=== PATIENT | male | born 1955 | race Caucasian/White ===

== ENCOUNTER 2023-04-12 07:17 | Emergency (ER) | payer MEDICARE, SELFPAY ==
[2023-04-12] VITALS (40 sets, daily range): BP systolic 112–136; BP diastolic 66–114; PULSE 75–134; RESP 15–32; TEMP 36.4; O2SAT 91–99; BMI 45.4
[2023-04-12 08:06] LABS: Basophils Absolute Auto 0.03 K/uL (0.00-0.30); Basophils Percent Auto 0.5 % (0.0-3.0); Eosinophils Absolute Auto 0.18 K/uL (0.00-0.50); Eosinophils Percent Auto 3.1 % (0.0-7.0); Hematocrit 46.4 % (37.0-53.0); Hemoglobin* 14.7 gm/dL (13.5-17.5); Immature Granulocytes Abs Auto 0.03 K/uL (0.00-0.30); Immature Granulocytes Pct Auto 0.5 %; Lymphocytes Absolute Auto 2.12 K/uL (0.90-2.90); Lymphocytes Percent Auto 36.8 % (20-44); Mean Corpuscular HGB Conc 32 gm/dL (32-36); Mean Corpuscular Hemoglobin 30 pg (26-34); Mean Corpuscular Volume 96 fL (80-100); Monocytes Percent Auto 10.4 % (0.0-11.0); Neutrophils Percent Auto 48.7 % (42.0-72.0); Platelet Count* 219 K/uL (140-440); RDW Coefficient of Variation % 14.1 % (11.5-15.5); Red Blood Count 4.85 m/uL (4.30-5.90); White Blood Count* 5.76 K/uL (4.50-11.00)
[2023-04-12 08:10] LABS: Slide Review Reflex No
--- NOTE | 2023-04-12 08:10 | ED.GENADULT ---
HPI - General Adult General Chief complaint: Shortness of Breath/Dyspnea <Chance Noyola MD - Last Filed: 04/26/23 06:56> Stated complaint: difficulty breathing <Chance Noyola MD - Last Filed: 04/26/23 06:56> Time Seen by Provider: 04/12/23 08:05 <Chance Noyola MD - Last Filed: 04/26/23 06:56> History of Present Illness HPI narrative: reports that he has been feeling short of breath for the past 2 weeks. this has worsened the last 2 days. is especially feels this way upon exertion. has hx of a fib in the past and presents with this today . hr 90s-140s. has had an ablation at [facility] 2-3 years ago . is on Eliquis due to this hx . denies any pain. r ankle shows more swelling. last po was at 1730. took water this am with meds at 0530 67-year-old man presenting to the emergency department with concern of exertional dyspnea over the last couple of weeks. Even just getting up to go to the bathroom seems to make him more tired particularly over the last couple of days. Seems indicate that he typically is not in atrial fibrillation even slow AFib. No cough or cold symptoms no fever. No melena. No shortness of breath at rest. Actually says he feels better now. Does have a history of atrial fibrillation with ablation to 3 years ago. Says before his heart rate was much higher. Takes Eliquis and has not missed any doses. Has noted some increased right ankle swelling or generally with little lower extremity edema. He denies a history of heart failure. No chest pain. No changes in weight. Walks regularly. Does not drink alcohol. Thinks he does a good job keeping up with fluids. In addition to Eliquis takes metoprolol succinate 50 mg twice a day. Been no change in this dosing he says. <Chance Noyola MD - Last Filed: 04/26/23 06:56> Related Data Home medications: Home Medications Medication Instructions Recorded Confirmed allopurinol 300 mg tablet 300 mg PO DAILY 04/12/23 04/12/23 apixaban 5 mg tablet (Eliquis) 5 mg PO BID 04/12/23 04/12/23 furosemide 20 mg tablet 20 mg PO QAM 04/12/23 04/12/23 lisinopril 40 mg tablet 40 mg PO DAILY 04/12/23 04/12/23 metoprolol succinate 50 mg 50 mg PO BID 04/12/23 04/12/23 tablet,extended release 24 hr Previous Rx's Medication Instructions Recorded amiodarone 400 mg tablet 400 mg PO BID #30 tabs 04/12/23 metoprolol succinate 100 mg 100 mg PO BID #30 tabs 04/12/23 tablet,extended release 24 hr <Chance Noyola MD - Last Filed: 04/26/23 06:56> Allergies/adverse reactions: Allergies Allergy/AdvReac Type Severity Reaction Status Date / Time No Known Drug Allergies Allergy Verified 04/12/23 07:27 <Chance Noyola MD - Last Filed: 04/26/23 06:56> Review of Systems Status of ROS: Reports: 6 or more systems reviewed and unremarkable except as noted in History and below <Chance Noyola MD - Last Filed: 04/26/23 06:56> [facility] Social History: Social History Smoking Status: Never smoker Do you use any of these nicotine containing products: None Second hand tobacco smoke exposure: No How often do you have a drink containing alcohol: monthly or less How many standard drinks containing alcohol do you have on a typical day: 1 or 2 How often do you have six or more drinks on one occasion: Never AUDIT-C Alcohol total score: 1 Non-prescribed substance use: denies use service: No <Chance Noyola MD - Last Filed: 04/26/23 06:56> Exam Narrative: Exam Narrative: Very pleasant. Mustachioed. Skin is warm and dry. Lower extremities with hemosiderin deposition consistent of chronic stasis. Right is a little more edematous on the lower extremities around the ankle than the left. Both mildly pitting. No pain to palpation. Negative Homans. Lungs are clear. Breathing easily. Heart is in a rapid rate and irregular rhythm. Distant. Abdomen is obese soft nontender. Fully alert. Cranial nerves 2-12 intact. <Chance Noyola MD - Last Filed: 04/26/23 06:56> Const: Vital Signs, click to edit/add: Vital Signs - 24 hr 04/12/23 07:29 04/12/23 07:39 04/12/23 07:45 Temperature 97.5 F L Pulse Rate 94 134 H Pulse Rate [Apical ] 128 H Respiratory Rate 32 H Blood Pressure Blood Pressure [Le ft Forearm] 127/71 Pulse Oximetry 94 92 93 Oxygen Delivery Me thod Room Air Oxygen Flow Rate 04/12/23 08:00 04/12/23 08:02 04/12/23 08:03 Temperature Pulse Rate 111 H 92 125 H Pulse Rate [Apical ] Respiratory Rate 30 H Blood Pressure 130/84 Blood Pressure [Le ft Forearm] Pulse Oximetry 92 93 92 Oxygen Delivery Me thod Oxygen Flow Rate 04/12/23 08:15 04/12/23 08:30 04/12/23 08:32 Temperature Pulse Rate 115 H 111 H 100 Pulse Rate [Apical ] Respiratory Rate Blood Pressure 113/86 Blood Pressure [Le ft Forearm] Pulse Oximetry 94 94 94 Oxygen Delivery Me thod Oxygen Flow Rate 04/12/23 08:45 04/12/23 09:00 04/12/23 09:02 Temperature Pulse Rate 79 77 104 H Pulse Rate [Apical ] Respiratory Rate Blood Pressure 112/82 Blood Pressure [Le ft Forearm] Pulse Oximetry 93 96 94 Oxygen Delivery Me thod Oxygen Flow Rate 04/12/23 09:15 04/12/23 09:30 04/12/23 09:32 Temperature Pulse Rate 88 75 79 Pulse Rate [Apical ] Respiratory Rate Blood Pressure 118/81 Blood Pressure [Le ft Forearm] Pulse Oximetry 95 96 95 Oxygen Delivery Me thod Oxygen Flow Rate 04/12/23 09:45 04/12/23 10:00 04/12/23 10:02 Temperature Pulse Rate 101 H 108 H 89 Pulse Rate [Apical ] Respiratory Rate Blood Pressure 128/101 H Blood Pressure [Le ft Forearm] Pulse Oximetry 96 95 93 Oxygen Delivery Me thod Oxygen Flow Rate 04/12/23 10:15 04/12/23 10:30 04/12/23 10:32 Temperature Pulse Rate 85 106 H 90 Pulse Rate [Apical ] Respiratory Rate Blood Pressure 125/66 Blood Pressure [Le ft Forearm] Pulse Oximetry 96 94 94 Oxygen Delivery Me thod Oxygen Flow Rate 04/12/23 10:45 04/12/23 10:52 04/12/23 11:00 Temperature Pulse Rate 111 H 80 Pulse Rate [Apical ] Respiratory Rate 27 H Blood Pressure Blood Pressure [Le ft Forearm] Pulse Oximetry 91 98 Oxygen Delivery Me thod Nasal Cannula Oxygen Flow Rate 2 04/12/23 11:02 04/12/23 11:15 04/12/23 11:21 Temperature Pulse Rate 97 107 H 98 Pulse Rate [Apical ] Respiratory Rate 28 H 20 30 H Blood Pressure 124/81 135/87 Blood Pressure [Le ft Forearm] Pulse Oximetry 99 98 97 Oxygen Delivery Me thod Nasal Cannula Oxygen Flow Rate 2 04/12/23 11:27 04/12/23 11:30 04/12/23 11:32 Temperature Pulse Rate 111 H 98 101 H Pulse Rate [Apical ] Respiratory Rate 31 H 30 H 28 H Blood Pressure 123/95 H 114/95 H Blood Pressure [Le ft Forearm] Pulse Oximetry 95 97 95 Oxygen Delivery Me thod Nasal Cannula Nasal Cannula Nasal Cannula Oxygen Flow Rate 6 2 2 04/12/23 11:36 04/12/23 11:42 04/12/23 11:45 Temperature Pulse Rate 98 88 105 H Pulse Rate [Apical ] Respiratory Rate 28 H 28 H 25 H Blood Pressure 130/93 H 127/97 H Blood Pressure [Le ft Forearm] Pulse Oximetry 93 97 96 Oxygen Delivery Me thod Nasal Cannula Oxygen Flow Rate 2 04/12/23 11:47 04/12/23 11:48 04/12/23 11:52 Temperature Pulse Rate 76 84 121 H Pulse Rate [Apical ] Respiratory Rate 27 H 25 H 24 Blood Pressure 125/110 H 136/107 H Blood Pressure [Le ft Forearm] Pulse Oximetry 97 95 97 Oxygen Delivery Me thod Oxygen Flow Rate 04/12/23 12:00 04/12/23 12:02 04/12/23 12:15 Temperature Pulse Rate 111 H 99 105 H Pulse Rate [Apical ] Respiratory Rate 15 30 H 27 H Blood Pressure 126/114 H Blood Pressure [Le ft Forearm] Pulse Oximetry 97 96 96 Oxygen Delivery Me thod Oxygen Flow Rate 04/12/23 12:30 04/12/23 12:32 Temperature Pulse Rate Pulse Rate [Apical ] Respiratory Rate 26 H 31 H Blood Pressure 128/98 H Blood Pressure [Le ft Forearm] Pulse Oximetry Oxygen Delivery Me thod Oxygen Flow Rate <Chance Noyola MD - Last Filed: 04/26/23 06:56> Vital Signs, click to edit/add: Vital Signs - 24 hr 04/12/23 07:29 04/12/23 07:39 04/12/23 07:45 Temperature 97.5 F L Pulse Rate 94 134 H Pulse Rate [Apical ] 128 H Respiratory Rate 32 H Blood Pressure Blood Pressure [Le ft Forearm] 127/71 Pulse Oximetry 94 92 93 Oxygen Delivery Me thod Room Air Oxygen Flow Rate 04/12/23 08:00 04/12/23 08:02 04/12/23 08:03 Temperature Pulse Rate 111 H 92 125 H Pulse Rate [Apical ] Respiratory Rate 30 H Blood Pressure 130/84 Blood Pressure [Le ft Forearm] Pulse Oximetry 92 93 92 Oxygen Delivery Me thod Oxygen Flow Rate 04/12/23 08:15 04/12/23 08:30 04/12/23 08:32 Temperature Pulse Rate 115 H 111 H 100 Pulse Rate [Apical ] Respiratory Rate Blood Pressure 113/86 Blood Pressure [Le ft Forearm] Pulse Oximetry 94 94 94 Oxygen Delivery Me thod Oxygen Flow Rate 04/12/23 08:45 04/12/23 09:00 04/12/23 09:02 Temperature Pulse Rate 79 77 104 H Pulse Rate [Apical ] Respiratory Rate Blood Pressure 112/82 Blood Pressure [Le ft Forearm] Pulse Oximetry 93 96 94 Oxygen Delivery Me thod Oxygen Flow Rate 04/12/23 09:15 04/12/23 09:30 04/12/23 09:32 Temperature Pulse Rate 88 75 79 Pulse Rate [Apical ] Respiratory Rate Blood Pressure 118/81 Blood Pressure [Le ft Forearm] Pulse Oximetry 95 96 95 Oxygen Delivery Me thod Oxygen Flow Rate 04/12/23 09:45 04/12/23 10:00 04/12/23 10:02 Temperature Pulse Rate 101 H 108 H 89 Pulse Rate [Apical ] Respiratory Rate Blood Pressure 128/101 H Blood Pressure [Le ft Forearm] Pulse Oximetry 96 95 93 Oxygen Delivery Me thod Oxygen Flow Rate 04/12/23 10:15 04/12/23 10:30 04/12/23 10:32 Temperature Pulse Rate 85 106 H 90 Pulse Rate [Apical ] Respiratory Rate Blood Pressure 125/66 Blood Pressure [Le ft Forearm] Pulse Oximetry 96 94 94 Oxygen Delivery Me thod Oxygen Flow Rate 04/12/23 10:45 04/12/23 10:52 04/12/23 11:00 Temperature Pulse Rate 111 H 80 Pulse Rate [Apical ] Respiratory Rate 27 H Blood Pressure Blood Pressure [Le ft Forearm] Pulse Oximetry 91 98 Oxygen Delivery Me thod Nasal Cannula Oxygen Flow Rate 2 04/12/23 11:02 04/12/23 11:15 04/12/23 11:21 Temperature Pulse Rate 97 107 H 98 Pulse Rate [Apical ] Respiratory Rate 28 H 20 30 H Blood Pressure 124/81 135/87 Blood Pressure [Le ft Forearm] Pulse Oximetry 99 98 97 Oxygen Delivery Me thod Nasal Cannula Oxygen Flow Rate 2 04/12/23 11:27 04/12/23 11:30 04/12/23 11:32 Temperature Pulse Rate 111 H 98 101 H Pulse Rate [Apical ] Respiratory Rate 31 H 30 H 28 H Blood Pressure 123/95 H 114/95 H Blood Pressure [Le ft Forearm] Pulse Oximetry 95 97 95 Oxygen Delivery Me thod Nasal Cannula Nasal Cannula Nasal Cannula Oxygen Flow Rate 6 2 2 04/12/23 11:36 04/12/23 11:42 04/12/23 11:45 Temperature Pulse Rate 98 88 105 H Pulse Rate [Apical ] Respiratory Rate 28 H 28 H 25 H Blood Pressure 130/93 H 127/97 H Blood Pressure [Le ft Forearm] Pulse Oximetry 93 97 96 Oxygen Delivery Me thod Nasal Cannula Oxygen Flow Rate 2 04/12/23 11:47 04/12/23 11:48 04/12/23 11:52 Temperature Pulse Rate 76 84 121 H Pulse Rate [Apical ] Respiratory Rate 27 H 25 H 24 Blood Pressure 125/110 H 136/107 H Blood Pressure [Le ft Forearm] Pulse Oximetry 97 95 97 Oxygen Delivery Me thod Oxygen Flow Rate 04/12/23 12:00 04/12/23 12:02 04/12/23 12:15 Temperature Pulse Rate 111 H 99 105 H Pulse Rate [Apical ] Respiratory Rate 15 30 H 27 H Blood Pressure 126/114 H Blood Pressure [Le ft Forearm] Pulse Oximetry 97 96 96 Oxygen Delivery Me thod Oxygen Flow Rate 04/12/23 12:30 04/12/23 12:32 Temperature Pulse Rate Pulse Rate [Apical ] Respiratory Rate 26 H 31 H Blood Pressure 128/98 H Blood Pressure [Le ft Forearm] Pulse Oximetry Oxygen Delivery Me thod Oxygen Flow Rate <Miguel A Aldana MD - Last Filed: 04/12/23 11:32> Documenting provider has reviewed patient's vital signs: yes <Chance Noyola MD - Last Filed: 04/26/23 06:56> Course Vital Signs Vital signs: Initial Vital Signs Temperature 97.5 F L 04/12/23 07:29 Temperature Source Temporal Artery Scan 04/12/23 07:29 Pulse Rate 128 H 04/12/23 07:29 Pulse Rhythm Irregular 04/12/23 07:29 Respiratory Rate 32 H 04/12/23 07:29 Blood Pressure 127/71 04/12/23 07:29 Blood Pressure Mean 89 04/12/23 07:29 Blood Pressure Position Supine 04/12/23 07:29 Pulse Oximetry 94 04/12/23 07:29 Oxygen Delivery Method Room Air 04/12/23 07:29 Vital Signs Temperature 97.5 F L 04/12/23 07:29 Pulse Rate 128 H 04/12/23 07:29 Respiratory Rate 32 H 04/12/23 07:29 Blood Pressure 127/71 04/12/23 07:29 Pulse Oximetry 94 04/12/23 07:29 Oxygen Delivery Method Room Air 04/12/23 07:29 Temperature 97.5 F L 04/12/23 07:29 Pulse Rate 105 H 04/12/23 12:15 Respiratory Rate 31 H 04/12/23 12:32 Blood Pressure 128/98 H 04/12/23 12:32 Pulse Oximetry 96 04/12/23 12:15 Oxygen Delivery Method Nasal Cannula 04/12/23 11:36 Oxygen Flow Rate 2 04/12/23 11:36 <Chance Noyola MD - Last Filed: 04/26/23 06:56> Initial Vital Signs Temperature 97.5 F L 04/12/23 07:29 Temperature Source Temporal Artery Scan 04/12/23 07:29 Pulse Rate 128 H 04/12/23 07:29 Pulse Rhythm Irregular 04/12/23 07:29 Respiratory Rate 32 H 04/12/23 07:29 Blood Pressure 127/71 04/12/23 07:29 Blood Pressure Mean 89 04/12/23 07:29 Blood Pressure Position Supine 04/12/23 07:29 Pulse Oximetry 94 04/12/23 07:29 Oxygen Delivery Method Room Air 04/12/23 07:29 Vital Signs Temperature 97.5 F L 04/12/23 07:29 Pulse Rate 128 H 04/12/23 07:29 Respiratory Rate 32 H 04/12/23 07:29 Blood Pressure 127/71 04/12/23 07:29 Pulse Oximetry 94 04/12/23 07:29 Oxygen Delivery Method Room Air 04/12/23 07:29 Temperature 97.5 F L 04/12/23 07:29 Pulse Rate 105 H 04/12/23 12:15 Respiratory Rate 31 H 04/12/23 12:32 Blood Pressure 128/98 H 04/12/23 12:32 Pulse Oximetry 96 04/12/23 12:15 Oxygen Delivery Method Nasal Cannula 04/12/23 11:36 Oxygen Flow Rate 2 04/12/23 11:36 <Miguel A Aldana MD - Last Filed: 04/12/23 11:32> Medical Decision Making MDM Narrative Medical decision making narrative: Sounds like doctors in [facility]. Certain might be some other cause/precipitant to AFib with RVR evidence here today. EKG reviewed by me does show atrial fibrillation with RVR. Will collect basic labs. IV hydration and a dose of diltiazem and reassess. Anticipate need for electrical cardioversion. Heart rate improved though remained in atrial fibrillation. Rate began to creep back up again. Did discuss this case with Cardiology. Was not in atrial fibrillation when last evaluated by them. They would support proceeding with cardioversion. I am anticipating need for higher energy with conversion. Informed consent obtained from Mr. Weber. I asked Dr. Aldana to assist with this electrical cardioversion for symptomatic atrial fibrillation I was asked to join with Dr. Noyola for assistance with cardioversion. After acquiring informed consent patient received 100 mg of propofol intravenously. This brought about adequate sedation for cardioversion. Cardioversion was performed with 200 joules of energy and brought him back to normal sinus rhythm for about a minute. He then reverted back to atrial fibrillation. He was still sedated so another cardioversion attempt occurred again with 200 joules of energy. This again brought him into normal sinus rhythm but it was not sustained. After about a minute he again returned to atrial fibrillation. During this time he did have some hypoxia which was remedied with jaw thrust. Patient tolerated this procedure well. Dr. Elio Aldana As noted above unfortunately cardioversion x2 did not hold. Had lengthy discussion with Cardiology regarding med management prior to follow-up with them in anticipation of repeat cardioversion or possible repeat ablation. Was dosed with amiodarone and metoprolol prior to departure. See patient discharge plan <Chance Noyola MD - Last Filed: 04/26/23 06:56> Sounds like doctors in [facility]. Certain might be some other cause/precipitant to AFib with RVR evidence here today. EKG reviewed by me does show atrial fibrillation with RVR. Will collect basic labs. IV hydration and a dose of diltiazem and reassess. Anticipate need for electrical cardioversion. I was asked to join with Dr. Noyola for assistance with cardioversion. After acquiring informed consent patient received 100 mg of propofol intravenously. This brought about adequate sedation for cardioversion. Cardioversion was performed with 200 joules of energy and brought him back to normal sinus rhythm for about a minute. He then reverted back to atrial fibrillation. He was still sedated so another cardioversion attempt occurred again with 200 joules of energy. This again brought him into normal sinus rhythm but it was not sustained. After about a minute he again returned to atrial fibrillation. During this time he did have some hypoxia which was remedied with jaw thrust. Patient tolerated this procedure well. Dr. Elio Aldana <Miguel A Aldana MD - Last Filed: 04/12/23 11:32> Medical Records Medical records reviewed: Yes I reviewed the patient's medical records <Chance Noyola MD - Last Filed: 04/26/23 06:56> Lab Data Lab results reviewed: Yes I reviewed the patient's lab results <Chance Noyola MD - Last Filed: 04/26/23 06:56> Labs: Lab Results 04/12/23 04/12/23 Range/Units 07:53 08:00 WBC 5.76 (4.50-11.00) K/uL RBC 4.85 (4.30-5.90) m/uL Hgb 14.7 (13.5-17.5) gm/dL Hct 46.4 (37.0-53.0) % MCV 96 (80-100) fL MCH 30 (26-34) pg MCHC 32 (32-36) gm/dL RDW Coeff of Renetta 14.1 (11.5-15.5) % Plt Count 219 (140-440) K/uL Neut % (Auto) 48.7 (42.0-72.0) % Lymph % (Auto) 36.8 (20-44) % [place] % (Auto) 10.4 (0.0-11.0) % Eos % (Auto) 3.1 (0.0-7.0) % Baso % (Auto) 0.5 (0.0-3.0) % Neut # (Auto) 2.80 (1.7-7.0) K/uL Lymph # (Auto) 2.12 (0.90-2.90) K/uL [place] # (Auto) 0.60 (0.00-0.90) K/UL Eos # (Auto) 0.18 (0.00-0.50) K/uL Baso # (Auto) 0.03 (0.00-0.30) K/uL Abs Immat Gran (auto) 0.03 (0.00-0.30) K/uL Imm/Tot Granulo (auto) 0.5 % Sodium 140 (135-149) mmol/L Potassium 4.7 (3.6-5.1) mmol/L Chloride 106 (96-114) mmol/L Carbon Dioxide 25 (20-32) mmol/L Anion Gap 9 (7-15) mEq/L BUN 21 (7-30) mg/dL Creatinine 0.9 (0.5-1.5) mg/dL Estimated Creat Clear 65.18 Estimated GFR 92 ml/min Glucose 99 (60-115) mg/dL Calcium 9.2 (8.4-10.6) mg/dL Magnesium 2.1 (1.5-2.6) mg/dL Total Bilirubin 0.9 (0.1-1.5) mg/dL AST 28 (12-35) U/L ALT 26 (4-50) U/L Alkaline Phosphatase 114 (40-150) U/L Troponin I < 0.01 L (0.01-0.04) ng/mL C-Reactive Protein 1.5 H (0.5-1.0) mg/dL NT-Pro-B Natriuret Pep 2430 pg/mL Total Protein 7.4 (6.0-8.3) g/dL Albumin 4.0 (3.3-5.0) g/dL SARS-CoV-2 (PCR) Negative SARS-CoV-2 (Negative) Influenza Type A (PCR) Negative PCR FLU A (Negative) Influenza Type B (PCR) Negative PCR FLU B (Negative) RSV (PCR) Negative PCR RSV (Negative) POC Troponin I 0.00 L (0.01-0.04) ng/ml <Chance Noyola MD - Last Filed: 04/26/23 06:56> Lab Results 04/12/23 04/12/23 Range/Units 07:53 08:00 WBC 5.76 (4.50-11.00) K/uL RBC 4.85 (4.30-5.90) m/uL Hgb 14.7 (13.5-17.5) gm/dL Hct 46.4 (37.0-53.0) % MCV 96 (80-100) fL MCH 30 (26-34) pg MCHC 32 (32-36) gm/dL RDW Coeff of Renetta 14.1 (11.5-15.5) % Plt Count 219 (140-440) K/uL Neut % (Auto) 48.7 (42.0-72.0) % Lymph % (Auto) 36.8 (20-44) % [place] % (Auto) 10.4 (0.0-11.0) % Eos % (Auto) 3.1 (0.0-7.0) % Baso % (Auto) 0.5 (0.0-3.0) % Neut # (Auto) 2.80 (1.7-7.0) K/uL Lymph # (Auto) 2.12 (0.90-2.90) K/uL [place] # (Auto) 0.60 (0.00-0.90) K/UL Eos # (Auto) 0.18 (0.00-0.50) K/uL Baso # (Auto) 0.03 (0.00-0.30) K/uL Abs Immat Gran (auto) 0.03 (0.00-0.30) K/uL Imm/Tot Granulo (auto) 0.5 % Sodium 140 (135-149) mmol/L Potassium 4.7 (3.6-5.1) mmol/L Chloride 106 (96-114) mmol/L Carbon Dioxide 25 (20-32) mmol/L Anion Gap 9 (7-15) mEq/L BUN 21 (7-30) mg/dL Creatinine 0.9 (0.5-1.5) mg/dL Estimated Creat Clear 65.18 Estimated GFR 92 ml/min Glucose 99 (60-115) mg/dL Calcium 9.2 (8.4-10.6) mg/dL Magnesium 2.1 (1.5-2.6) mg/dL Total Bilirubin 0.9 (0.1-1.5) mg/dL AST 28 (12-35) U/L ALT 26 (4-50) U/L Alkaline Phosphatase 114 (40-150) U/L Troponin I < 0.01 L (0.01-0.04) ng/mL C-Reactive Protein 1.5 H (0.5-1.0) mg/dL NT-Pro-B Natriuret Pep 2430 pg/mL Total Protein 7.4 (6.0-8.3) g/dL Albumin 4.0 (3.3-5.0) g/dL SARS-CoV-2 (PCR) Negative SARS-CoV-2 (Negative) Influenza Type A (PCR) Negative PCR FLU A (Negative) Influenza Type B (PCR) Negative PCR FLU B (Negative) RSV (PCR) Negative PCR RSV (Negative) POC Troponin I 0.00 L (0.01-0.04) ng/ml <Miguel A Aldana MD - Last Filed: 04/12/23 11:32> ECG Data Attestation: I personally reviewed and interpreted this ECG as follows: (1. AFib with RVR at 119) <Chance Noyola MD - Last Filed: 04/26/23 06:56> Critical Care Time Critical Care Time Critical Care Time: Yes Attestation: The patient required my highest level preparedness to intervene emergently and I personally spent this critical care time directly and personally managing the patient. This critical care time included: Obtaining a history; Examining the patient; Pulse oximetry; Ordering and reviewing of studies; Arranging urgent treatment with development of a management plan; Evaluation of patients response to treatment; Frequent reassessment discussions with other providers. This critical care time was performed to assess and manage the high probability of imminent life-threatening deterioration that could result in multiorgan failure. It was exclusive of separate billable procedures and treating other patients and teaching time. <Chance Noyola MD - Last Filed: 04/26/23 06:56> Total Critical Care Time in Minutes: 50 <Chance Noyola MD - Last Filed: 04/26/23 06:56> Discharge Plan Discharge Clinical Impression: Atrial fibrillation with rapid ventricular response <Chance Noyola MD - Last Filed: 04/26/23 06:56> Patient Disposition: Home, Self-Care <Chance Noyola MD - Last Filed: 04/26/23 06:56> Condition: Stable <Chance Noyola MD - Last Filed: 04/26/23 06:56> Additional Instructions: I am disappointed that the electrical cardioversion did not hold for you. I spoke today with Dr. Thurston from [facility]. They will be reaching out to you shortly to schedule follow-up echocardiogram and cardioversion. In the meantime they would like you to double your metoprolol dosing to 100 mg twice a day. Start amiodarone at 400 mg 2 times daily until you see them which I assume would be in about a week. If you are further out than that asked them about other medication adjustments that need to be made. They would also like you to keep track of your heart rate here and there. Report that to them in likely phone call on Saturday. Continue to take your Eliquis as prescribed. Otherwise if you are feeling worse, increasingly short of breath, persistent chest pain worsening lightheadedness, please present to the ER. <Chance Noyola MD - Last Filed: 04/26/23 06:56> Prescriptions: New amiodarone 400 mg tablet 400 mg PO BID Qty: 30 0RF metoprolol succinate 100 mg tablet extended release 24 hr 100 mg PO BID Qty: 30 0RF No Action metoprolol succinate 50 mg tablet extended release 24 hr 50 mg PO BID allopurinol 300 mg tablet 300 mg PO DAILY furosemide 20 mg tablet 20 mg PO QAM lisinopril 40 mg tablet 40 mg PO DAILY Eliquis 5 mg tablet 5 mg PO BID <Chance Noyola MD - Last Filed: 04/26/23 06:56> Follow Up/Referrals: Provider,Not a Local [Primary Care Provider] - <Chance Noyola MD - Last Filed: 04/26/23 06:56> Stand Alone Forms: [facility] Info Instructions <Chance Noyola MD - Last Filed: 04/26/23 06:56>
[2023-04-12 08:22] LABS: Chloride* 106 mmol/L (96-114); Sodium* 140 mmol/L (135-149)
[2023-04-12 08:23] LABS: Potassium* 4.7 mmol/L (3.6-5.1)
[2023-04-12 08:25] LABS: Alkaline Phosphatase* 114 U/L (40-150); Aspartate Amino Transferase* 28 U/L (12-35); Bilirubin Total* 0.9 mg/dL (0.1-1.5); Carbon Dioxide* 25 mmol/L (20-32); Creatinine* 0.9 mg/dL (0.5-1.5); Est. Creatinine Clearance* 65.18; Estimated Glomerular Filt Rate 92 ml/min; Total Protein* 7.4 g/dL (6.0-8.3)
[2023-04-12 08:26] LABS: Alanine Aminotransferase* 26 U/L (4-50); Blood Urea Nitrogen* 21 mg/dL (7-30); Calcium* 9.2 mg/dL (8.4-10.6); Glucose* 99 mg/dL (60-115)
[2023-04-12 08:28] LABS: C Reactive Protein* 1.5 mg/dL (0.5-1.0)
[2023-04-12 08:30] LABS: Anion Gap 9 mEq/L (7-15)
[2023-04-12] MEDS: 0.9 % SODIUM CHLORIDE 1000 ml 1,000 ML IV (08:35)
[2023-04-12] MEDS: dilTIAZem 5 MG/ML inj 20 MG IVP (08:35)
[2023-04-12 08:43] LABS: NT Pro B Type NatriureticPept* 2430 pg/mL; Troponin I* < 0.01 ng/mL (0.01-0.04)
[2023-04-12 09:01] LABS: Magnesium* 2.1 mg/dL (1.5-2.6)
[2023-04-12 09:13] LABS: PCR FLU A Negative PCR FLU A (Negative); PCR FLU B Negative PCR FLU B (Negative); PCR RSV Negative PCR RSV (Negative); SARS PCR* Negative SARS-CoV-2 (Negative)
--- NOTE | 2023-04-12 10:23 | CRLHL7_ITS ---
For Patients: As a result of the Century Cures Act, medical imaging exams and procedure reports are released immediately into your electronic medical record. You may view this report before your referring provider. If you have questions, please contact your health care provider. INDICATION: Exertional dyspnea. COMPARISON: 11/20/2021 and 01/31/2021. TECHNIQUE: Single view of the chest. FINDINGS : Top-normal size of the cardiac silhouette, which may be secondary to hypoinflation and AP technique. Pulmonary vasculature is unremarkable. No focal consolidation. No pleural effusion or pneumothorax. No acute osseous abnormality. Elevation of the right humeral head in relation to the acromion, likely secondary to chronic full-thickness rotator cuff tear. IMPRESSION: Hypoinflated lungs without acute abnormality identified. Dictated by Rebecca Mak MD @ 04/12/2023 10:46:21 AM (Electronically Signed)
[2023-04-12] MEDS: PROPOFOL 10 MG/ML INJ 200 MG IVP (11:20)
[2023-04-12] MEDS: METOPROLOL SUCCINATE (XL) 50 MG TAB PO (12:19)
[2023-04-12] MEDS: AMIODARONE 200 MG TABLET PO (12:20)
== END 2023-04-12 13:23 | disposition home or self-care (01) ==
PROVIDERS: Family Medicine; Emergency Provider Family Medicine
DX: I48.91 Unspecified atrial fibrillation (principal)
CPT/HCPCS: 36415; 71045; 80048; 80053; 83735; 83880; 84484; 85018; 85025; 86140; 87631; 92960; 93005; 96374; 99284; 99291; A9270; J2704; J7030

== ENCOUNTER 2024-03-06 10:11 | Outpatient (CLI) | payer MEDICARE, SELFPAY ==
--- OUTSIDE RECORDS SUMMARY | 2024-03-06 10:15 | XMS_ITS | Clinical Summary ---
Author Organization [facility] Address [place], [place] [address] Care Team Providers Care Building Mover Name Role Phone Brunilda Elias MD Unavailable [phone] Ruby Boston Primary Care Provider [phone] Allergies No known active allergies Medications Medication Sig Dispensed Refills Start Date End Date Status apixaban (ELIQUIS) 5 mg tabletIndications:pre vent thromboembolism in chronic atrial fibrillation Take 1 Tablet (5 mg) by mouth two times daily. 180 Tablet 3 09/02/2023 Active furosemide (LASIX) 20 mg tabletIndications:Acu te on chronic systolic heart failure (HC) Take 2 Tablets (40 mg) by mouth two times daily. Ok to take extra 2 tablets (40 mg) as needed for fluid retention. 100 Tablet 3 09/02/2023 Active lisinopriL (PRINIVIL; ZESTRIL) 40 mg tabletIndications:Hyp ertension Take 1 Tablet (40 mg) by mouth once daily. 90 Tablet 3 09/02/2023 Active metoprolol succinate (TOPROL XL) 50 mg sustained-release tabletIndications:Atr ial flutter, unspecified type (HC),Typical atrial flutter (HC),Hypertension, unspecified type TAKE TWO TABLETS (100MG) BY MOUTH TWICE A DAY 360 Tablet 1 10/11/2023 Active allopurinoL (ZYLOPRIM) 300 mg tabletIndications:Gou t, arthropathy Take 1 Tablet (300 mg) by mouth once daily. Take with 100 mg tablet to make 400 mg total daily dose. 90 Tablet 11/27/2023 Active allopurinoL (ZYLOPRIM) 100 mg tabletIndications:Gou t, arthropathy Take 1 Tablet (100 mg) by mouth once daily. Take with 300 mg tablet to make 400 mg total daily dose. 90 Tablet 11/27/2023 Active polyethylene glycol-electrolyte (GOLYTELY) 236-22.74-6.74 -5.86 gram suspensionIndications :Adenomatous polyp of colon, unspecified part of colon Drink 2 liters (half the bottle) the day before colonoscopy and 2 liters (remaining prep) 6 hours prior to colonoscopy appointment. 4000 mL 02/28/2024 Active Active Problems Problem Noted Date Diagnosed Date Morbid obesity with BMI of 40.0-44.9, adult 1012/2021 Atrial flutter 07/26/2021 Acute on chronic systolic heart failure 02/02/20 21 Adenomatous colon polyp 03/20/2019 Overview: Colonoscopy 03/2019 polyp, repeat in 5 years Gout, arthropathy 10/11/2015 Hypertension 09/29/2009 Encounter for Long-Term (Current) Use of Other M edications 08/31/2009 Resolved Problems Problem Noted Date Diagnosed Date Resolved Date Gout, arthritis 07/02/2013 10/11/2015 Nonischemic cardiomyopathy 05/10/2009 0 03/03/2019 Overview: - 2001: EF 25% - 2003: EF 50-55% - 2005: EF 45-50% Morbid obesity 05/10/2009 03/03/2019 Encounters Date Type Department Care Team Description 02/28/2024 7:00 AM CDT Preop Visit [facility] [address] [place] [address] Ruby Boston PA Preoperative Exam (03/06 /Colonoscopy/Dr. Alvarez/[facility] ) 02/28/2024 Telephone [facility] [address] [place] [address] Ruby Boston PA Form 02/28/2024 Travel from Last 3 Months Immunizations Name Administration Dates Next Due AMB Influenza, IIV3 (Age >=3 years)(Flu Clinic Only) 05/17/2008 Influenza, High-dose Quadriv alent Inactivated 03/27/2023,04/09/2022,04/03/2021 Influenza, IIV3 (Age 6-35 mos) 03/17/2020,2015 Influenza, IIV3 (Age >=3 years) 03/28/20 14,03/16/2013,04/18/2009,05/17,05/12/2007 Influenza, IIV4 04/04/2018, 7,04/24/2016,04/27 Influenza, Inactivated IIV3 (Age 65+ Years) Preserv Free 04/06/2019 Pneumococcal Poly,23-Valent (Pneumovax) 04/26/2020 Pneumococcal conj 13-Valent (Prevnar 13) 03/03/2019 RSV, Recombinant ADJ Reconst ituted (Arexvy 120MCG/0.5mL) 04/08/2023 Td, Preservative Free (age >= 7 Years) 6,02/21/2005 Tdap 02/21/2005 Zoster (Shingrix-RZV, recombinant) 11/12/2022, Family History Medical History Relation Name Comments Cancer Brother 1 will liver cancer Cancer Brother 2 leukemia Other Brother 2 melanoma Cancer Brother 3 lung Other Brother 3 leukemia Other Brother 4 parkinson Arthritis Mother Dementia Mother Relation Name Status Comments Brother 1 will Brother 2 Brother 3 Brother 4 Father Mother Alive Social History Tobacco Use Types Packs/Day Years Used Date Smoking Tobacco: Never Smokeless Tobacco: Never Tobacco Cessation:Counseling Given: Yes Alcohol Use Standard Drinks/Week Comments No 0 (1 standard drink = 0.6 oz pur e alcohol) PHQ-2 Answer Date Recorded PHQ-2 TOTAL SCORE 0 11/26/2023 Social Connections Answer Date Recorded Frequency of Communication with Friends and Fami ly 0 11/26/2023 Financial Resource Strain Answer Date R ecorded Difficulty of Paying Living Expenses 1 11/26/2023 Difficulty of Paying Living Expenses 2 11/26/2023 Food Insecurity Answer Date Recorded Worried About Running Out of Food in the Last Ye ar 1 11/26/2023 Transportation Needs Answer Date Record ed Lack of Transportation (Medical) 1 11/26/2023 Housing Stability Answer Date Recorded Unable to Pay for Housing in the Last Year 1 11/26/2023 Sex and Gender Information Value Date Recorded Sex Assigned at Not on file Gender Identity Not on file Sexual Orientation Not on file Obstetrics History Last Filed Vital Signs Vital Sign Reading Time Taken Comments Blood Pressure 130/81 02/28/2024 7:03 AM CDT Pulse 77 02/28/2024 7:03 AM CDT Temperature 36.4 ??C (97.5 ??F) 05/09/2023 2:29 PM CD T Respiratory Rate 16 05/09/2023 2:29 PM CDT Oxygen Saturation 98% 02/28/2024 7:03 AM CDT Inhaled Oxygen Concentration - - Weight 135.1 kg (297 lb 12.8 oz) 02/28/2024 7:03 AM CDT Height 163.4 cm (5' 4.33) 02/28/2024 7:03 AM CD T Body Mass Index 50.59 02/28/2024 7:03 AM CDT Plan of Treatment Upcoming Encounters Date Type Department Care Team (Late st Contact Info) Description 03/06/2024 1:00 PM CDT Office Visit [facility] at [facility] [address] [place] [address] Fercho Alvarez MD [address] [place] [address] Arrived Health Maintenance Due Date Last Done Comments COVID-19 vaccine series ( season) 2023 04/17/2023, 11/27/2022, 04/09/2022, Additional history exists Influenza for age 65+ 03/08/2024 03/27/2023 , 04/09/2022, 04/03/2021, Additional history exists Colonoscopy through age 75 03/19/202403/06, 03/19/2019, 03/19/2019, Additional history exists Depression screening for age 12+ 11/26/2024 11/27/2023, 11/26/2023, 11/26/2023, Additional history exists Medicare Wellness for age 65+ 11/26/2024, 07/18/2022, 05/01/2021, Additional history exists BMI (ht and wt on same day) for age 18+ 02/27/2025 02/28/2024, 11/26/2023, 09/02/2023, Additional history exists Tetanus booster 02/21/2026 02/22/2016, 02/05, 02/21/2005 Lipids for age 45-75 11/25/2028 11/26/2023, 04/09/2022, 05/01/2021, Additional history exists Tdap Completed 02/21/2005 Pneumococcal series for age 65+ Completed , 03/03/2019 Hepatitis C screening for ag e 18-79 Completed 05/01/2021 Zoster (shingles) series for age 50+ Completed 11/12/2022, 04/08/2018 Procedures Procedure Name Priority Date/Time Associated Diagnosis Comments COLONOSCOPY SCREENING Routine 03/06/2024 8:36 AM CDT Adenomatous polyp of colon, unspecified part of colon BASIC METABOLIC PANEL Routine 02/28/2024 7:48 AM CDT Preop examination LIPID PANEL W REFLEX MEASURED LDL Routine 11/26/2023 10:12 AM CDT Lipid screening ANTI HCV Routine 05/01/2021 10:05 AM CDT Need for hepatitis C screening test from Last 3 Months or Most Recently Relevant to Health Maintenance Results * (ABNORMAL) BASIC METABOLIC PANEL (02/28/2024 7:48 AM CDT) SODIUM 140 136 - 145 mmol/L 02/28/2024 2:08 PM CDT [facility] POTASSIUM 4.2 3.5 - 5.1 mmol/L 02/28/2024 2:08 PM CDT [facility] CHLORIDE 105 98 - 107 mmol/L 02/28/2024 2:08 PM CDT [facility] CO2,TOTAL 21(L) 22 - 29 mmol/L 02/28/2024 2:08 PM CDT [facility] ANION GAP 14 5 - 18 02/28/2024 2:08 PM CDT [facility] GLUCOSE 103(H) 70 - 99 mg/dL 02/28/2024 2:08 PM CDT [facility] CALCIUM 9.6 8.8 - 10.2 mg/dL 02/28/2024 2:08 PM CDT [facility] BUN 44(H) 8 - 23 mg/dL 02/28/2024 2:08 PM CDT [facility] CREATININE 1.40(H) 0.70 - 1.20 mg/dL 02/28/2024 2:08 PM CDT [facility] BUN/CREAT RATIO 31(H) 10 - 20 2:08 PM CDT [facility] eGFR 54(L) >90 mL/min/1.7 3m2 02/28/2024 2:08 PM CDT [facility] Comment:As of 2021, eG FR is calculated by the CKD-EPI creatinine equation without race adjustment. ??eGFR can be influenced by muscle mass, exercise, and diet. ??The reported eGFR is an estimation only and is only applicable if the renal function is stable. Blood BLOOD SPECIMEN / Unknown Butterfly / Unknown 02/28/2024 7:48 AM CDT 02/28/2024 7:48 AM CDT Ruby YEE CHEMISTRY [facility] [address] [place] [address], * LIPID PANEL W REFLEX MEASURED LDL (11/26/2023 10:12 AM CDT) CHOLESTEROL,TOTAL 162 100 - 199 mg/dL 11/27/2023 2:10 AM CDT [facility] Comment: Cholesterol, Total Reference Ranges Desirable <200 mg/dL Borderline 200-239 mg/dL High >=240 mg/dL TRIGLYCERIDES 109 <150 mg/dL 11/27/2023 2:10 AM CDT [facility] HDL CHOLESTEROL 50 >40 mg/dL 2:10 AM CDT [facility] NON-HDL CHOLESTEROL 112 <145 mg/dl 11/27/2023 2:10 AM CDT [facility] CHOL/HDL RATIO 3.24 <4.50 11/27/2023 2:10 AM CDT [facility] LDL CHOLESTEROL 90 <=130 mg/dL 11/27/2023 2:10 AM CDT [facility] VLDL CHOLESTEROL 22 <=30 mg/dL 11/27/2023 2:10 AM CDT [facility] PROVIDER ORDERED STATUS RANDOM 11/27/2023 2:10 AM CDT [facility] Blood BLOOD SPECIMEN / Unknown Butterfly / Unknown 11/26/2023 10:12 AM CDT 11/26/2023 10:12 AM CDT Ruby YEE CHEMISTRY [facility] [address] [place] [address], * ANTI HCV (05/01/2021 10:05 AM CDT) HEPATITIS C ANTIBODY Non-React brian Non-React brian 05/01/2021 6:57 PM CDT [facility] Comment:Antibodies to HCV no t detected; does not exclude the possibility of exposure to HCV. Blood BLOOD SPECIMEN / Unknown Venipuncture / Unknown 05/01/2021 10:05 AM CDT 05/01/2021 10:05 AM CDT Venita Marquez MD [facility] [address] [place] [address], * COLONOSCOPY DIAGNOSTIC (03/19/2019 7:45 AM CDT) Chance Galicia MD GI PROCEDURE ORD from Last 3 Months or Most Recently Relevant to Health Maintenance Advance Directives * Full Code (Latest Code Status on File) Date Activated Date Inactivated Comments 05/09/2023 12:48 PM 05/09/2023 10:42 PM Question Answer Comments Code Status Discussion: Other * Full Code Date Activated Date Inactivated Comments 04/22/2023 9:25 AM 04/22/2023 12:08 PM Question Answer Comments Code Status Discussion: Other * Full Code Date Activated Date Inactivated Comments 04/15/2023 11:15 AM 04/15/2023 5:25 PM Question Answer Comments Code Status Discussion: Reviewed Preferences * Full Code Date Activated Date Inactivated Comments 07/26/2021 10:30 AM 07/26/2021 6:11 PM Question Answer Comments Code Status Discussion: Other * Full Code Date Activated Date Inactivated Comments 02/01/2021 5:29 PM 02/04/2021 6:05 PM Question Answer Comments Code Status Discussion: Not Discussed Care Teams Building Mover Relationship Specialty Start Date End Date Ruby Boston PA [address] [place] [address] PCP - General Physician [employer] 11/26/23 Brunilda Elias MD Rheumatology Rheumatology 10/11/15
--- NOTE | 2024-03-06 11:11 | W.ANESCHARGE ---
Anesthesia Charges Start Date/Time Anesthesia Start Date: 03/06/24 Anesthesia Start Time: 11:40 Stop Date/Time Anesthesia Stop Date: 03/06/24 Anesthesia Stop Time: 12:00 Summary Extremes of Age - Over 70 or under 1: MDA
--- NOTE | 2024-03-06 12:02 | W.ANESCHARGE ---
Anesthesia Charges Start Date/Time Anesthesia Start Date: 03/06/24 Anesthesia Start Time: 11:40 Stop Date/Time Anesthesia Stop Date: 03/06/24 Anesthesia Stop Time: 12:00
== END 2024-03-06 10:12 | disposition home or self-care (01) ==
PROVIDERS: PCP Student in an Organized Health Care Education/Training Program; Visit Provider Internal Medicine Gastroenterology
DX: Z12.11 Encounter for screening for malignant neoplasm of colon (principal); Z86.010 Personal history of colon polyps
CPT/HCPCS: 00812; 45378; 99100; J2704

== ENCOUNTER 2024-08-16 09:07 | Outpatient (CLI) | payer MEDICARE, SELFPAY | END 2024-08-16 09:08 | disposition home or self-care (01) | LOC: AMB 08-19 18:37 | PROVIDERS: PCP Student in an Organized Health Care Education/Training Program; Visit Provider Emergency Medicine Emergency Medical Services | DX: S09.93XA Unspecified injury of face, initial encounter (principal); W19.XXXA Unspecified fall, initial encounter; Y92.481 Parking lot as the place of occurrence of the external cause | CPT/HCPCS: A0425; A0427 ==

== ENCOUNTER 2024-08-16 09:39 | Emergency (ER) | payer MEDICARE, SELFPAY ==
--- NOTE | 2024-08-16 09:40 | CRLHL7_ITS ---
For Patients: As a result of the Century Cures Act, medical imaging exams and procedure reports are released immediately into your electronic medical record. You may view this report before your referring provider. If you have questions, please contact your health care provider. Indication: Fall Technique: Noncontrast axial CT of the cervical spine with coronal and sagittal reformats. Comparison: Same-day CT head Findings: Cervical dextroconvex curvature, potentially positional, with mild nonspecific straightening of the normal cervical lordosis. Craniocervical articulation appears within normal limits. Ankylosis across the right C2-3 facet joint. Grade 1 anterolisthesis at C3-4 bulky ventral projecting osteophytes, with osseous bridging across C5-C6. No acute fracture identified. Disc-osteophyte complexes, uncovertebral and facet arthropathy, with multilevel high-grade neural foraminal stenosis, as well as at least moderate spinal canal stenosis. Impression: 1. No evidence of acute fracture or traumatic malalignment in the cervical spine. 2. Cervical spondylosis as detailed. Please note that all CT scans at this facility use dose modulation, iterative reconstruction, and/or weight-based dosing when appropriate to reduce radiation dose to as low as reasonably achievable. Dictated by Gina Gallo MD @ 08/16/2024 10:38:21 AM (Electronically Signed)
--- NOTE | 2024-08-16 09:40 | CRLHL7_ITS ---
For Patients: As a result of the Century Cures Act, medical imaging exams and procedure reports are released immediately into your electronic medical record. You may view this report before your referring provider. If you have questions, please contact your health care provider. INDICATION: Fall TECHNIQUE: Noncontrast axial CT of the head. Coronal and sagittal reformats. Bone and soft tissue algorithms. COMPARISON: None. FINDINGS: No skull fracture. No acute intracranial hemorrhage or abnormal extra-axial fluid collection identified. Preserved lara-white matter differentiation. Unremarkable white matter attenuation. Minor calcific plaquing at the carotid siphons. Unremarkable midline structures. Complete opacification of the right frontal sinus and right maxillary sinus with chronic osteitis changes. Clear mastoid air cells. Unremarkable orbits. IMPRESSION: 1. No skull fracture or acute intracranial hemorrhage identified. 2. Chronic-appearing right frontal and right maxillary sinus opacification Please note that all CT scans at this facility use dose modulation, iterative reconstruction, and/or weight-based dosing when appropriate to reduce radiation dose to as low as reasonably achievable. Dictated by Gina Gallo MD @ 08/16/2024 10:34:27 AM (Electronically Signed)
--- OUTSIDE RECORDS SUMMARY | 2024-08-16 09:41 | XMS_ITS | Clinical Summary ---
Author Organization [employer] [facility] Address [place], [place] [address] Care Team Providers Care Millroom Supervisor Name Role Phone Brunilda Elias MD Unavailable [phone] Ruby Boston Primary Care Provider [phone] Allergies No known active allergies Medications apixaban (ELIQUIS) 5 mg tabletIndications:p revent thromboembolism in chronic atrial fibrillation Take 1 Tablet (5 mg) by mouth two times daily. 180 Tablet 3 09/02/19 24 Active lisinopriL (PRINIVIL; ZESTRIL) 40 mg tabletIndications:H ypertension Take 1 Tablet (40 mg) by mouth once daily. 90 Tablet 3 09/02/19 24 Active polyethylene glycol-electrolyte (GOLYTELY) 236-22.74-6.74 -5.86 gram suspensionIndicatio ns:Adenomatous polyp of colon, unspecified part of colon Drink 2 liters (half the bottle) the day before colonoscopy and 2 liters (remaining prep) 6 hours prior to colonoscopy appointment. 4000 mL 02/28/20 24 Active metoprolol succinate (TOPROL XL) 50 mg sustained-release tabletIndications:A trial flutter, unspecified type (HC),Typical atrial flutter (HC),Hypertension, unspecified type Take 2 Tablets (100 mg) by mouth two times daily. 360 Tablet 1 03/30/20 24 Active allopurinoL (ZYLOPRIM) 100 mg tabletIndications:G out, arthropathy Take 1 Tablet (100 mg) by mouth once daily. Take with 300 mg tablet to make 400 mg total daily dose. 90 Tablet 06/25/20 24 Active allopurinoL (ZYLOPRIM) 300 mg tabletIndications:G out, arthropathy Take 1 Tablet (300 mg) by mouth once daily. Take with the 100 mg for total daily dose of 400 mg. 90 Tablet 06/25/20 24 Active furosemide (LASIX) 20 mg tabletIndications:A cute on chronic systolic heart failure (HC) TAKE 2 TABLETS BY MOUTH TWICE A DAY, OKAY TO TAKE EXTRA 2 TABLETS NEEDED FOR FLUID RETENTION. 360 Tablet 3 07/09/19 25 Active Active Problems Problem Noted Date Diagnosed Date Morbid obesity with BMI of 40.0-44.9, adult 10/0 12/2021 Atrial flutter 07/26/2021 Acute on chronic systolic heart failure 02/02/20 21 Adenomatous colon polyp 03/20/2019 Overview (03/06/2024): Colonoscopy 03/2019 polyp, repeat in 5 years Colonoscopy 02/2024 normal, repeat in 7-10 years Gout, arthropathy 10/11/2015 Hypertension 09/29/2009 Encounter for Long-Term (Current) Use of Other M edications 08/31/2009 Resolved Problems Problem Noted Date Diagnosed Date Resolved Date Gout, arthritis 07/02/2013 10/11/2015 Nonischemic cardiomyopathy 05/10/2009 0 03/03/2019 Overview (05/10/2009): - 2001: EF 25% - 2003: EF 50-55% - 2005: EF 45-50% Morbid obesity 05/10/2009 03/03/2019 Encounters Date Type Department Care Team Description 07/04/2024 Refill [facility] [address] [facility] [place] [address] Ruby Boston PA Refill Request (Furosemide) 06/24/2024 Refill [facility] [address] [facility] [place] [address] Ruby Boston PA Refill Request (Allopurinol, Allopurinol) 06/18/2024 12:45 PM WET PROCESS MILLER HEAD Orders Only [facility] [address] [facility] [address] Lab, [place] Lab 06/18/2024 Travel 05/20/2024 Telephone [facility] [address] [place] [address] Ruby Boston PA Lab from Last 3 Months Immunizations Name Administration [...] 0 11/26/2023 Social Connections Answer Date Recorded Do you often feel lonely or isolated from those around you? 0 11/26/2023 Financial Resource Strain Answer Date R ecorded Difficulty of Paying Living Expenses 1 11/26/2023 Difficulty of Paying Living Expenses 2 11/26/2023 Food Insecurity Answer Date Recorded Do you worry your food will run out before you are able to buy more? 1 11/26/2023 Transportation Needs Answer Date Record ed Does lack of transportation keep you from medica l appointments? 1 11/26/2023 Does lack of transportation keep you from work, meetings or getting things that you need? 1 11/26/2023 Housing Stability Answer Date Recorded What is your housing situation today? 1 11/26/2023 Utilities Answer Date Recorded Do you have trouble paying f or utilities (for example, heat, electricity, water, phone)? 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 Not on file Not on file Obstetrics History Last Filed Vital Signs Vital Sign Reading Time Taken Comments Blood Pressure 130/81 02/28/2024 7:03 AM CDT Pulse 77 02/28/2024 7:03 AM CDT Temperature 36.4 C (97.5 F) 05/09/2023 2:29 PM CDT Respiratory Rate 16 05/09/2023 2:29 PM CDT Oxygen Saturation 98% 02/28/2024 7:03 AM CDT Inhaled Oxygen Concentration - - Weight 135.1 kg (297 lb 12.8 oz) 02/28/2024 7:03 AM CDT Height 163.4 cm (5' 4.33) 02/28/2024 7:03 AM CD T Body Mass Index 50.59 02/28/2024 7:03 AM CDT Plan of Treatment Health Maintenance Due Date Last Done Comments COVID-19 vaccine series ( season) 2024 04/17/2023, 11/27/2022, 04/09/2022, Additional history exists Influenza for age 65+ 03/08/2024 03/27/2023 , 04/09/2022, 04/03/2021, Additional history exists Depression screening for age 12+ 11/26/2024 11/27/2023, 11/26/2023, 11/26/2023, Additional history exists Medicare Wellness for age 65+ 11/26/2024, 07/18/2022, 05/01/2021, Additional history exists BMI (ht and wt on same day) for age 18+ 02/27/2025 02/28/2024, 11/26/2023, 09/02/2023, Additional history exists Tetanus booster 02/21/2026 02/22/2016, 02/05, 02/21/2005 Lipids for age 45-75 11/25/2028 11/26/2023, 04/09/2022, 05/01/2021, Additional history exists Colonoscopy through age 75 03/06/203103/06, 03/06/2024, 03/19/2019, Additional history exists Tdap Completed 02/21/2005 Pneumococcal series for age 50+ Completed , 03/03/2019 Hepatitis C screening for ag e 18-79 Completed 05/01/2021 Zoster (shingles) series for age 50+ Completed 11/12/2022, 04/08/2018 RSV vaccine for adults or Completed 04/08/2023 Procedures Procedure Name Priority Date/Time Associated Diagnosis Comments CBC WITH AUTO DIFFERENTIAL Routine 06/18/2024 12:21 PM WET PROCESS MILLER HEAD Anemia of unknown etiology COLONOSCOPY SCREENING Routine 03/06/2024 12:00 AM CDT History of colon polyps LIPID PANEL W REFLEX MEASURED LDL Routine 11/26/2023 10:12 AM CDT Lipid screening ANTI HCV Routine 05/01/2021 10:05 AM CDT Need for hepatitis C screening test from Last 3 Months or Most Recently Relevant to Health Maintenance Results * CBC AND DIFFERENTIAL (06/18/2024 12:21 PM WET PROCESS MILLER HEAD) WHITE BLOOD CELL COUNT 8.5 3.8 - 10.8 Thousand/u L [facility] RED BLOOD CELL COUNT 4.65 4.20 - 5.80 Million/uL [facility] HEMOGLOBIN 14.8 13.2 - 17.1 g/dL [facility] HEMATOCRIT 43.6 38.5 - 50.0 % [facility] MCV 93.8 80.0 - 100.0 fL [facility] MCH 31.8 27.0 - 33.0 pg [facility] MCHC 33.9 32.0 - 36.0 g/dL [facility] Comment: For adults, a slight decrease in the calculated MCHC value (in the range of 30 to 32 g/dL) is most likely not clinically significant; however, it should be interpreted with caution in correlation with other red cell parameters and the patient's clinical condition. RDW 14.0 11.0 - 15.0 % [facility] PLATELET COUNT 281 140 - 400 Thousand/u L [facility] MPV 10.9 7.5 - 12.5 fL [facility] ABSOLUTE NEUTROPHILS 4,820 1,500 - 7,800 cells/uL [facility] ABSOLUTE LYMPHOCYTES 2,958 850 - 3,900 cells/uL [facility] ABSOLUTE MONOCYTES 553 200 - 950 cells/uL [facility] ABSOLUTE EOSINOPHILS 128 15 - 500 cells/uL [facility] ABSOLUTE BASOPHILS 43 0 - 200 cells/uL [facility] NEUTROPHILS 56.7 % [facility] LYMPHOCYTES 34.8 % [facility] MONOCYTES 6.5 % [facility] EOSINOPHILS 1.5 % [facility] BASOPHILS 0.5 % [facility] Blood BLOOD SPECIMEN / Unknown 06/18/2024 12:21 PM WET PROCESS MILLER HEAD 06/18/2024 12:22 PM WET PROCESS MILLER HEAD us Ruby YEE HEMATOLOGY Final Res ult [facility] [address] [place] [address], [facility] [address] [place] [address] * COLONOSCOPY SCREENING (03/06/2024 12:00 AM CDT) Ruby YEE GI PROCEDURE ORD Final Re sult * LIPID PANEL W REFLEX MEASURED LDL (11/26/2023 10:12 AM CDT) CHOLESTEROL,TOTAL 162 100 - 199 mg/dL 11/27/2023 2:10 AM CDT [facility] Comment: Cholesterol, Total Reference Ranges Desirable <200 mg/dL Borderline 200-239 mg/dL High >=240 mg/dL TRIGLYCERIDES 109 <150 mg/dL 11/27/2023 2:10 AM CDT [facility] HDL CHOLESTEROL 50 >40 mg/dL 2:10 AM CDT [facility] NON-HDL CHOLESTEROL 112 <145 mg/dl 11/27/2023 2:10 AM CDT [facility] CHOL/HDL RATIO 3.24 <4.50 11/27/2023 2:10 AM CDT [facility] LDL CHOLESTEROL 90 <=130 mg/dL 11/27/2023 2:10 AM CDT [facility] VLDL CHOLESTEROL 22 <=30 mg/dL 11/27/2023 2:10 AM CDT [facility] PROVIDER ORDERED STATUS RANDOM 11/27/2023 2:10 AM CDT [facility] Blood BLOOD SPECIMEN / Unknown Butterfly / Unknown 11/26/2023 10:12 AM CDT 11/26/2023 10:12 AM CDT us Ruby YEE CHEMISTRY Final Res ult [facility] [address] [place] [address], * ANTI HCV (05/01/2021 10:05 AM CDT) HEPATITIS C ANTIBODY Non-React brian Non-React rbian 05/01/2021 6:57 PM CDT [facility] Comment:Antibodies to HCV no t detected; does not exclude the possibility of exposure to HCV. Blood BLOOD SPECIMEN / Unknown Venipuncture / Unknown 05/01/2021 10:05 AM CDT 05/01/2021 10:05 AM CDT Venita Marquez MD SEND OUTS Final Result [facility] [address] [place] [address], [place] from Last 3 Months or Most Recently Relevant to Health Maintenance Insurance MEDICARE PART A HB ONLY [facility] MR/MSHO Advance Directives * Full Code (Latest Code [...] Code Status Discussion: Not Discussed Care Teams Millroom Supervisor Relationship Specialty Start Date End Date Ruby Boston PA [address] [place] [address] PCP - General Physician Nitroglycerin Supervisor 11/26/23 Brunilda Elias MD Rheumatology Rheumatology 10/11/15
[2024-08-16 09:44] VITALS: BP 130/80; PULSE 74; RESP 18; TEMP 36.4; O2SAT 94; BMI 45.4
--- NOTE | 2024-08-16 09:46 | ED_ITS ---
HPI - Fall General Chief Complaint: Fall/Minor Trauma Stated Complaint: Fall Time Seen by Provider: 08/16/24 09:41 History of Present Illness HPI Narrative: Patient is a 68-year-old gentleman comes in today after stumbling front of his rastafarian this morning. Patient was on his weight of attend rastafarian when he caught his foot on the curb and fell forward. He has some localize bleeding from his nose as well as some minor facial abrasions but did not lose consciousness. He was able to get up and was brought in by EMS. Pain is minimal. Bleeding is minimal. No neurologic complaints. Patient had no presyncopal or syncopal symptoms. Patient has atrial fibrillation and is on Eliquis. No other significant symptoms. Related Data Home Medications ?Medication ?Instructions ?Recorded ?Confirmed allopurinol 300 mg tablet 300 mg PO DAILY 04/12/23 04/12/23 apixaban 5 mg tablet (Eliquis) 5 mg PO BID 04/12/23 04/12/23 furosemide 20 mg tablet 20 mg PO QAM 04/12/23 04/12/23 lisinopril 40 mg tablet 40 mg PO DAILY 04/12/23 04/12/23 metoprolol succinate 50 mg 50 mg PO BID 04/12/23 04/12/23 tablet,extended release 24 hr Previous Rx's ?Medication ?Instructions ?Recorded amiodarone 400 mg tablet 400 mg PO BID #30 tabs 04/12/23 metoprolol succinate 100 mg 100 mg PO BID #30 tabs 04/12/23 tablet,extended release 24 hr Allergies Allergy/AdvReac Type Severity Reaction Status Date / Time No Known Drug Allergies Allergy Verified 08/16/24 09:44 Review of Systems Status of ROS: Reports: 10 or more systems reviewed and unremarkable except as noted in History and below [facility] Social History Smoking Status: Never smoker Do you use any of these nicotine containing products: None Second hand tobacco smoke exposure: No How often do you have a drink containing alcohol: monthly or less How many standard drinks containing alcohol do you have on a typical day: 1 or 2 How often do you have six or more drinks on one occasion: Never AUDIT-C Alcohol total score: 1 Non-prescribed substance use: denies use service: No Exam Narrative: Exam Narrative: EXAM GENERAL: Patient appears comfortable and well. EYES: No scleral icterus. ENT: Tympanic membranes and oropharynx normal. THYROID: no thyroid nodules or thyromegaly. LYMPH: No supraclavicular or cervical lymphadenopathy. SKIN: Minor abrasions on the face as well as minor epistaxis with minimal bleeding. EXT: No dependent lower extremity pedal edema. HEART: Irregularly irregular LUNGS: Clear to auscultation bilaterally with no crackles or wheezes. ABD: Soft, non tender, non distended. PSYCH: Good eye contact, speech is not pressured. Const: Vital Signs, click to edit/add: Vital Signs - 24 hr 08/16/24 09:44 Temperature 97.5 F L Pulse Rate [Pulse Oximeter] 74 Respiratory Rate 18 Blood Pressure [Le ft Forearm] 130/80 Pulse Oximetry 94 Oxygen Delivery Me thod Room Air Course Course ED Course: CT head and neck CBC basic metabolic panel UA EKG pending. Vital Signs Vital signs: Initial Vital Signs Temperature 97.5 F L 08/16/24 09:44 Temperature Source Temporal Artery Scan 08/16/24 09:44 Pulse Rate 74 08/16/24 09:44 Pulse Rhythm Regular 08/16/24 09:44 Respiratory Rate 18 08/16/24 09:44 Blood Pressure 130/80 08/16/24 09:44 Blood Pressure Mean 96 08/16/24 09:44 Blood Pressure Position Semi-Fowlers 08/16/24 09:44 Pulse Oximetry 94 08/16/24 09:44 Oxygen Delivery Method Room Air 08/16/24 09:44 Vital Signs Temperature 97.5 F L 08/16/24 09:44 Pulse Rate 74 08/16/24 09:44 Respiratory Rate 18 08/16/24 09:44 Blood Pressure 130/80 08/16/24 09:44 Pulse Oximetry 94 08/16/24 09:44 Oxygen Delivery Method Room Air 08/16/24 09:44 Temperature 97.5 F L 08/16/24 09:44 Pulse Rate 74 08/16/24 09:44 Respiratory Rate 18 08/16/24 09:44 Blood Pressure 130/80 08/16/24 09:44 Pulse Oximetry 94 08/16/24 09:44 Oxygen Delivery Method Room Air 08/16/24 09:44 MDM - Fall MDM Narrative Medical decision making narrative: Patient is a 68-year-old gentleman who stumbled entering his rastafarian today. He comes in with a some abrasions over his nose and cheeks. These were cleaned and dressed. CT of the head and cervical spine are without acute abnormalities. Diallo swanson is on Eliquis. EKG shows sinus rhythm. CBC basic metabolic panel unremarkable. Vital signs exam otherwise unremarkable. Patient unable to provide a urine. This time we did observe him in eggs thoroughly examine him and see no further issues. He is discharged home to use Tylenol ice keep the wounds clean and treated with triple antibiotic and follow-up with his primary physician as needed. Lab Data Labs: Lab Results 08/16/24 Range/Units 10:16 WBC 6.63 (4.50-11.00) K/uL RBC 4.58 (4.30-5.90) m/uL Hgb 13.9 (13.5-17.5) gm/dL Hct 44.4 (37.0-53.0) % MCV 97 (80-100) fL MCH 30 (26-34) pg MCHC 31 L (32-36) gm/dL RDW Coeff of Renetta 14.8 (11.5-15.5) % Plt Count 203 (140-440) K/uL Neut % (Auto) 47.4 (42.0-72.0) % Lymph % (Auto) 40.7 (20-44) % [place] % (Auto) 7.5 (0.0-11.0) % Eos % (Auto) 3.5 (0.0-7.0) % Baso % (Auto) 0.6 (0.0-3.0) % Neut # (Auto) 3.14 (1.7-7.0) K/uL Lymph # (Auto) 2.70 (0.90-2.90) K/uL [place] # (Auto) 0.50 (0.00-0.90) K/UL Eos # (Auto) 0.23 (0.00-0.50) K/uL Baso # (Auto) 0.04 (0.00-0.30) K/uL Abs Immat Gran (auto) 0.02 (0.00-0.30) K/uL Imm/Tot Granulo (auto) 0.3 % Sodium 143 (135-149) mmol/L Potassium 4.3 (3.6-5.1) mmol/L Chloride 107 (96-114) mmol/L Carbon Dioxide 27 (20-32) mmol/L Anion Gap 9 (7-15) mEq/L BUN 52 H (7-30) mg/dL Creatinine 1.2 (0.5-1.5) mg/dL Estimated Creat Clear 53.55 Estimated GFR 65 ml/min Glucose 108 (60-115) mg/dL Calcium 10.1 (8.4-10.6) mg/dL Discharge Plan Discharge Clinical Impression: Fall Patient Disposition: Home, Self-Care Condition: Stable Instructions: Abrasion (ED) Additional Instructions: Treat wounds with bacitracin and keep clean. Tylenol as needed Ice Continue current medications. Follow-up with your doctor as needed. Activity Level: No Restrictions Discharge Diet: Regular Prescriptions: No Action metoprolol succinate 50 mg tablet extended release 24 hr 50 mg PO BID allopurinol 300 mg tablet 300 mg PO DAILY furosemide 20 mg tablet 20 mg PO QAM lisinopril 40 mg tablet 40 mg PO DAILY Eliquis 5 mg tablet 5 mg PO BID amiodarone 400 mg tablet 400 mg PO BID Qty: 30 0RF metoprolol succinate 100 mg tablet extended release 24 hr 100 mg PO BID Qty: 30 0RF Follow Up/Referrals: Ruby Boston PA-C [Primary Care Provider] - Stand Alone Forms: [email or web address] Info Instructions
[2024-08-16 10:08] VITALS: BP 98/52; PULSE 76; O2SAT 95
--- OUTSIDE RECORDS SUMMARY | 2024-08-16 10:16 | XMS_ITS | Clinical Summary ---
Author Organization [employer] [facility] Address [place], [place] [address] Care Team Providers Care Band Singer Name Role Phone Brunilda Elias MD Unavailable [phone] Ruby Boston Primary Care Provider [phone] Allergies No known active allergies Medications apixaban [...] [facility] [address] [place] [address] Ruby Boston PA Refill Request (Furosemide) 06/24/2024 Refill [facility] [address] [place] [address] Ruby Boston PA Refill Request (Allopurinol, Allopurinol) 06/18/2024 12:45 PM COMPRESSOR SERVICE TECHNICIAN Orders Only [facility] [address] [place] [address] Lab, [place] Lab 06/18/2024 Travel 05/20/2024 Telephone [facility] [address] [place] [address] Ruby Boston PA Lab from Last 3 [...] on file Legal Sex Male 5:17 AM COMPRESSOR SERVICE TECHNICIAN Gender Identity Not on file Sexual Orientation Not on file 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 Not on file [...] WITH AUTO DIFFERENTIAL Routine 06/18/2024 12:21 PM COMPRESSOR SERVICE TECHNICIAN Anemia of unknown etiology COLONOSCOPY SCREENING Routine 03/06/2024 12:00 AM CDT History of colon polyps LIPID PANEL W REFLEX MEASURED LDL Routine 11/26/2023 10:12 AM CDT Lipid screening ANTI HCV Routine 05/01/2021 10:05 AM CDT Need for hepatitis C screening test from Last 3 Months or Most Recently Relevant to Health Maintenance Results * CBC AND DIFFERENTIAL (06/18/2024 12:21 PM COMPRESSOR SERVICE TECHNICIAN) WHITE BLOOD CELL COUNT 8.5 3.8 - [...] BLOOD SPECIMEN / Unknown 06/18/2024 12:21 PM COMPRESSOR SERVICE TECHNICIAN 06/18/2024 12:22 PM COMPRESSOR SERVICE TECHNICIAN us Ruby YEE HEMATOLOGY Final Res ult [facility] [address] [place] [address], [facility] [address] [place] [address] * COLONOSCOPY SCREENING (03/06/2024 12:00 AM CDT) Ruby YEE GI PROCEDURE ORD Final Re sult * LIPID PANEL W REFLEX MEASURED LDL (11/26/2023 10:12 AM CDT) CHOLESTEROL,TOTAL 162 100 - 199 mg/dL 11/27/2023 2:10 AM CDT [facility] Comment: Cholesterol, Total Reference Ranges Desirable <200 mg/dL Borderline 200-239 mg/dL High >=240 mg/dL TRIGLYCERIDES 109 <150 mg/dL 11/27/2023 2:10 AM CDT [facility] HDL CHOLESTEROL 50 >40 mg/dL 2:10 AM CDT [facility] NON-HDL CHOLESTEROL 112 <145 mg/dl 11/27/2023 2:10 AM CDT [facility] CHOL/HDL RATIO 3.24 <4.50 11/27/2023 2:10 AM CDT [facility] LDL CHOLESTEROL 90 <=130 mg/dL 11/27/2023 2:10 AM CDT [facility] VLDL CHOLESTEROL 22 <=30 mg/dL 11/27/2023 2:10 AM CDT [facility] PROVIDER ORDERED STATUS RANDOM 11/27/2023 2:10 AM CDT [facility] Blood BLOOD SPECIMEN / Unknown Butterfly / Unknown 11/26/2023 10:12 AM CDT 11/26/2023 10:12 AM CDT us Ruby YEE CHEMISTRY Final Res ult [facility] [address] [place] [address], * ANTI HCV (05/01/2021 10:05 AM CDT) HEPATITIS C ANTIBODY Non-React brian Non-React brian 05/01/2021 6:57 PM CDT [facility] Comment:Antibodies to HCV no t detected; does not exclude the possibility of exposure to HCV. Blood BLOOD SPECIMEN / Unknown Venipuncture / Unknown 05/01/2021 10:05 AM CDT 05/01/2021 10:05 AM CDT Venita Marquez MD SEND OUTS Final Result [facility] [address] [place] [address], [place] from Last 3 Months or Most Recently Relevant to Health Maintenance Insurance MEDICARE PART A HB ONLY [facility] MR/MSHO Advance Directives * Full Code [...] Code Status Discussion: Not Discussed Care Teams Band Singer Relationship Specialty Start Date End Date Ruby Boston PA [address] [place] [address] PCP - General Physician Kennel Aide 11/26/23 Brunilda Elias MD Rheumatology Rheumatology 10/11/15
[2024-08-16 10:23] LABS: Basophils Absolute Auto 0.04 K/uL (0.00-0.30); Basophils Percent Auto 0.6 % (0.0-3.0); Eosinophils Absolute Auto 0.23 K/uL (0.00-0.50); Eosinophils Percent Auto 3.5 % (0.0-7.0); Hematocrit 44.4 % (37.0-53.0); Hemoglobin* 13.9 gm/dL (13.5-17.5); Immature Granulocytes Abs Auto 0.02 K/uL (0.00-0.30); Immature Granulocytes Pct Auto 0.3 %; Lymphocytes Percent Auto 40.7 % (20-44); Mean Corpuscular HGB Conc 31 gm/dL (32-36); Mean Corpuscular Hemoglobin 30 pg (26-34); Mean Corpuscular Volume 97 fL (80-100); Monocytes Percent Auto 7.5 % (0.0-11.0); Neutrophils Absolute Auto 3.14 K/uL (1.7-7.0); Neutrophils Percent Auto 47.4 % (42.0-72.0); Platelet Count* 203 K/uL (140-440); RDW Coefficient of Variation % 14.8 % (11.5-15.5); Red Blood Count 4.58 m/uL (4.30-5.90); White Blood Count* 6.63 K/uL (4.50-11.00)
[2024-08-16 10:30] VITALS: BP 116/78; PULSE 70; RESP 18; O2SAT 93
[2024-08-16 10:30] LABS: Slide Review Reflex No
[2024-08-16 10:36] LABS: Chloride* 107 mmol/L (96-114); Potassium* 4.3 mmol/L (3.6-5.1); Sodium* 143 mmol/L (135-149)
[2024-08-16 10:39] LABS: Anion Gap 9 mEq/L (7-15); Blood Urea Nitrogen* 52 mg/dL (7-30); Calcium* 10.1 mg/dL (8.4-10.6); Carbon Dioxide* 27 mmol/L (20-32); Creatinine* 1.2 mg/dL (0.5-1.5); Est. Creatinine Clearance* 53.55; Estimated Glomerular Filt Rate 65 ml/min; Glucose* 108 mg/dL (60-115)
[2024-08-16 10:55] LABS: Appearance Urine Clear (Clear); Bilirubin Urine Negative (Negative); Blood Urine Negative (Negative); Color Urine Yellow (Yellow); Glucose Urine Negative (Negative); Ketones Urine Negative (Negative); Leukocyte Esterase Urine Negative (Negative); Nitrite Urine Negative (Negative); Protein Urine Negative (Negative); Urobilinogen Urine 0.2 (0.2-1.0); pH Urine 5.5 (5.0-8.5)
== END 2024-08-16 11:17 | disposition home or self-care (01) ==
PROVIDERS: Emergency Provider Internal Medicine; PCP Student in an Organized Health Care Education/Training Program
DX: S00.81XA Abrasion of other part of head, initial encounter (principal); W01.0XXA Fall on same level from slipping, tripping and stumbling without subsequent striking against object, initial encounter; Y92.22 Religious institution as the place of occurrence of the external cause; R04.0 Epistaxis
CPT/HCPCS: 36415; 70450; 72125; 80048; 81003; 85025; 93005; 99283; 99284

== ENCOUNTER 2025-02-23 12:48 | Emergency (ER) | payer MEDICARE, SELFPAY ==
--- OUTSIDE RECORDS SUMMARY | 2025-02-23 12:50 | XMS_ITS | Clinical Summary ---
Author Organization [facility] Address [address] [place] [address] Care Team Providers Care Clinical Research Director Name Role Phone Brunilda Elias MD Unavailable [phone] Ruby Boston Primary Care Provider [phone] Allergies No known active allergies Medications apixaban 5 mg tabletIndications:pr event thromboembolism in chronic atrial fibrillation Take 1 Tablet (5 mg) by mouth two times daily. 180 Tablet 3 5 Active lisinopriL 40 mg tabletIndications:Hy pertension Take 1 Tablet (40 mg) by mouth once daily. 90 Tablet 3 5 Active metoprolol succinate 50 mg sustained-release tabletIndications:Ty pical atrial flutter (HC),Atrial flutter, unspecified type (HC),Hypertension, unspecified type Take 2 Tablets (100 mg) by mouth two times daily. 360 Tablet 3 5 Active allopurinoL 100 mg tabletIndications:Go ut, arthropathy Take 1 Tablet (100 mg) by mouth once daily. Take with 300 mg tablet to make 400 mg total daily dose. 90 Tablet 5 Active allopurinoL 300 mg tabletIndications:Go ut, arthropathy Take 1 Tablet (300 mg) by mouth once daily. Take with the 100 mg for total daily dose of 400 mg. 90 Tablet 5 Active furosemide 20 mg tabletIndications:Ac twenty-nine palms on chronic systolic heart failure (HC) TAKE 2 TABLETS BY MOUTH TWICE A DAY, OKAY TO TAKE EXTRA 2 TABLETS NEEDED FOR FLUID RETENTION. 360 Tablet 3 5 Active Active Problems Problem Noted Date Diagnosed [...] Encounters Date Type Department Care Team Description 12/11/2024 8:15 AM CDT Office Visit [facility] [address] [place] [address] Ruby Boston PA Medicare ANNUAL (subsequent) Visit (Non fasting. ) 12/11/2024 Travel 12/07/2024 4:30 PM CDT Office Visit [facility] - [address] [place] [address] Anupam Lopez MD Follow Up (Annual F/U. 08/16 CT. Pt states feeling good, no recent or current cardiac symptoms. Needs refills ) 12/07/2024 4:15 PM CDT - 12/07/2024 11:59 PM CDT Hospital Encounter [facility] [address] [facility] [place] [address] Typical atrial flutter (HC); Gout, arthropathy; Prostate cancer screening; Acute on chronic systolic heart failure (HC); Hypertension 12/07/2024 Travel from Last 3 Months Immunizations Immunization Administration Dates Next Due AMB Influenza, IIV3 [...] Relation Name Comments Cancer Brother 1 will melanoma Cancer Brother 2 Naren leukemia Cancer Brother 3 Blair prostate Dementia Brother 3 Blair Dementia Brother 4 Don Arthritis Mother Dementia Mother Relation Name Status Comments Brother 1 will Brother 2 Naren Brother 3 Blair Brother 4 Don Brother 5 Ruben Alive Brother 6 Alex Alive Father Mother Sister Kaylee Alive Social History Tobacco Use Types Packs/Day Years Used Date Smoking Tobacco: Never Smokeless Tobacco: Never Tobacco Cessation:Counseling Given: Yes Alcohol Use Standard Drinks/Week Comments Yes 0 (1 standard drink = 0.6 oz pur e alcohol) rare- [place] PHQ-2 Answer Date Recorded PHQ-2 TOTAL SCORE 1 12/11/2024 Social Connections Answer Date Recorded Do you often feel lonely or isolated from those around you? 0 12/11/2024 Financial Resource Strain Answer Date R ecorded Difficulty of Paying Living Expenses 3 12/11/2024 Difficulty of Paying Living Expenses Not on file 12/11/2024 Food Insecurity Answer Date Recorded Do you worry your food will run out before you are able to buy more? 1 12/11/2024 Transportation Needs Answer Date Record ed Does lack of transportation keep you from medica l appointments? 1 12/11/2024 Does lack of transportation keep you from work, meetings or getting things that you need? 1 12/11/2024 Housing Stability Answer Date Recorded What is your housing situation today? 1 12/11/2024 Utilities Answer Date Recorded Do you have trouble paying f or utilities (for example, heat, electricity, water, phone)? 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 Not on file Not on file Obstetrics History Last Filed Vital Signs Vital Sign Reading Time Taken Comments Blood Pressure 128/86 12/11/2024 7:46 AM CDT Pulse 74 12/11/2024 7:46 AM CDT Temperature 36.4 C (97.5 F) 05/09/2023 2:29 PM CDT Respiratory Rate 16 05/09/2023 2:29 PM CDT Oxygen Saturation 98% 12/11/2024 7:46 AM CDT Inhaled Oxygen Concentration - - Weight 134.7 kg (297 lb) 12/11/2024 7:46 AM CDT Height 163.3 cm (5' 4.3) 12/07/2024 4:04 PM CDT Body Mass Index 50.51 12/07/2024 4:04 PM CDT Plan of Treatment Health Maintenance Due Date Last Done Comments COVID-19 vaccine series ( season) 2024 04/06/2024, 04/17/2023, 11/27/2022, Additional history exists Influenza Vaccine (#1) 2025 , 04/06/2019, 04/04/2018, Additional history exists BMI (ht and wt on same day) for age 18+ 12/07/2025 12/07/2024, 02/28/2024, 11/26/2023, Additional history exists Depression screening for age 12+ 12/11/2025 12/11/2024, 11/27/2023, 11/26/2023, Additional history exists Medicare Wellness for age 65+ 12/12/2025 12/11/2024, 11/26/2023, 07/18/2022, Additional history exists Tetanus booster 02/21/2026 02/22/2016, 02/05, 02/21/2005 Lipids for age 45-75 11/25/2028 11/26/2023, 04/09/2022, 05/01/2021, Additional history exists Colonoscopy through age 75 03/06/203103/06, 03/06/2024, 03/19/2019, Additional history exists Pneumococcal series for age 50+ Completed 04/26/2020, 03/03/2019 Hepatitis C screening for age 18-79 Completed 05/01/2021 Zoster (shingles) series for age 50+ Completed 11/12/2022, 04/08/2018 RSV vaccine for adults or Completed 04/08/2023 Hepatitis B series for 19+ Aged Out N o longer eligible based on patient's age to complete this topic Procedures Procedure Name Priority Date/Time Associated Diagnosis Comments BASIC METABOLIC PANEL Today 12/07/2024 4:24 PM CDT Acute on chronic systolic heart failure (HC) Hypertension PSA TOTAL Today 12/07/2024 4:24 PM CDT Prostate cancer screening URIC ACID Today 12/07/2024 4:24 PM CDT Gout, arthropathy BUN Today 12/07/2024 4:24 PM CDT Typical atrial flutter (HC) CREATININE Today 12/07/2024 4:24 PM CDT Typical atrial flutter (HC) ALT (SGPT) Today 12/07/2024 4:24 PM CDT Typical atrial flutter (HC) AST (SGOT) Today 12/07/2024 4:24 PM CDT Typical atrial flutter (HC) EKG 12 LEAD Routine 12/07/2024 3:58 PM CDT Typical atrial flutter (HC) Non-ischemic cardiomyopathy (HC) Paroxysmal atrial fibrillation (HC) COLONOSCOPY SCREENING Routine 03/06/2024 12:00 AM CDT History of colon polyps LIPID PANEL W REFLEX MEASURED LDL Routine 11/26/2023 10:12 AM CDT Lipid screening ANTI HCV Routine 05/01/2021 10:05 AM CDT Need for hepatitis C screening test from Last 3 Months or Most Recently Relevant to Health Maintenance Results * (ABNORMAL) BUN (12/07/2024 4:24 PM CDT) BUN 33(H) 8 - 23 mg/dL 12/07/2024 4:47 PM CDT [facility] Blood BLOOD SPECIMEN / Unknown Butterfly / Unknown 12/07/2024 4:24 PM CDT 12/07/2024 4:24 PM CDT us Anupam Lopez MD CHEMISTRY Fin al Result [address] [address] * (ABNORMAL) CREATININE (12/07/2024 4:24 PM CDT) eGFR 57(L) >90 mL/min/1.7 3m2 12/07/2024 4:47 PM CDT [facility] Comment:As of 2021, eG FR is calculated by the CKD-EPI creatinine equation without race adjustment. eGFR can be influenced by muscle mass, exercise, and diet. The reported eGFR is an estimation only and is only applicable if the renal function is stable. CREATININE 1.33(H) 0.70 - 1.20 mg/dL 12/07/2024 4:47 PM CDT [facility] Blood BLOOD SPECIMEN / Unknown Butterfly / Unknown 12/07/2024 4:24 PM CDT 12/07/2024 4:24 PM CDT Anupam Lopez MD CHEMISTRY Fin al Result Performing Organization Address [facility] Co de Phone Number [address] [address] * URIC ACID (12/07/2024 4:24 PM CDT) URIC ACID 5.5 3.4 - 7.0 mg/dL 12/11/2024 9:07 AM CDT [facility] Blood BLOOD SPECIMEN / Unknown Butterfly / Unknown 12/07/2024 4:24 PM CDT 12/07/2024 4:24 PM CDT Ruby YEE CHEMISTRY Final Res ult Performing Organization Address [facility] Co de Phone Number [address] [address] * ALT (SGPT) (12/07/2024 4:24 PM CDT) ALT (SGPT) 30 10 - 50 IU/L 12/07/2024 4:47 PM CDT [facility] Blood BLOOD SPECIMEN / Unknown Butterfly / Unknown 12/07/2024 4:24 PM CDT 12/07/2024 4:24 PM CDT Anupam Lopez MD CHEMISTRY Fin al Result Performing Organization Address [facility] Co de Phone Number [address] [address] * AST (SGOT) (12/07/2024 4:24 PM CDT) AST (SGOT) 28 10 - 50 IU/L 12/07/2024 4:47 PM CDT [facility] Blood BLOOD SPECIMEN / Unknown Butterfly / Unknown 12/07/2024 4:24 PM CDT 12/07/2024 4:24 PM CDT Anupam Lopez MD CHEMISTRY Fin al Result Performing Organization Address City/[facility]/ZIP Co de Phone Number [facility] [address] [place] [address] * PSA TOTAL (DIAG OR SCREEN) (12/07/2024 4:24 PM CDT) PSA TOTAL 3.95 <4.00 ng/mL 12/11/2024 1:30 PM CDT [facility] Blood BLOOD SPECIMEN / Unknown Butterfly / Unknown 12/07/2024 4:24 PM CDT 12/07/2024 4:24 PM CDT Narrative [facility] - 12/11/2024 1:30 PM CDT The test method changed on 01/01/2023. If this test has been used for serial monitoring, rebaselining is recommended. Rebaselining consists of 2 measurements, collected 3-6 weeks apart. The Hollie Elecsys total PSA assay is an electrochemiluminescence immunoassay ECLIA performed on the Hollie Carlton e immunoassay analyzers. Values obtained with different assay methods may be different and cannot be used interchangeably. Ruby YEE CHEMISTRY Final Res ult [facility] [address] [place] [address], * (ABNORMAL) BASIC METABOLIC PANEL (12/07/2024 4:24 PM CDT) SODIUM 143 136 - 145 mmol/L 12/11/2024 9:16 AM CDT [facility] POTASSIUM 4.6 3.5 - 5.1 mmol/L 12/11/2024 9:16 AM CDT [facility] CHLORIDE 104 98 - 107 mmol/L 12/11/2024 9:16 AM CDT [facility] CO2,TOTAL 22 22 - 29 mmol/L 12/11/2024 9:16 AM CDT [facility] ANION GAP 17 5 - 18 12/11/2024 9:16 AM CDT [facility] GLUCOSE 90 70 - 99 mg/dL 12/11/2024 9:16 AM CDT [facility] CALCIUM 10.2 8.8 - 10.4 mg/dL 12/11/2024 9:16 AM CDT [facility] Comment: Reference ranges for this test were updated on 05/12/2024 to reflect our healthy population more accurately. Reference range changes are not retroactively applied to results, but previous results using the same methodology can be interpreted in the context of the new reference range. BUN 33(H) 8 - 23 mg/dL 12/11/2024 9:16 AM CDT [facility] CREATININE 1.33(H) 0.70 - 1.20 mg/dL 12/11/2024 9:16 AM CDT [facility] BUN/CREAT RATIO 25(H) 10 - 20 9:16 AM CDT [facility] eGFR 57(L) >90 mL/min/1. 73m2 12/11/2024 9:16 AM CDT [facility] Comment: As of 2021, eGFR is calculated by the CKD-EPI creatinine equation without race adjustment. eGFR can be influenced by muscle mass, exercise, and diet. The reported eGFR is an estimation only and is only applicable if the renal function is stable. As of 09/19/2021, eGFR is calculated by the CKD-EPI creatinine equation without race adjustment. eGFR can be influenced by muscle mass, exercise, and diet. The reported eGFR is an estimation only and is only applicable if the renal function is stable. Blood BLOOD SPECIMEN / Unknown Butterfly / Unknown 12/07/2024 4:24 PM CDT 12/07/2024 4:24 PM CDT us Ruby YEE CHEMISTRY Final Res ult [facility] [address] [place] [address] * EKG 12 LEAD (12/07/2024 3:58 PM CDT) Interpretation Sinus rhythm with 1st degree A-V block Low voltage QRS Borderline ECG When compared with ECG of 02-Sep-2023 13:11, No significant change was found Ventricular Rate 97 BPM Atrial Rate 97 BPM P-R Interval 212 ms QRS Duration 66 ms QT 358 ms QTc 454 ms P Aspers 72 degrees R Aspers 16 degrees T Aspers 51 degrees 12/07/2024 3:58 PM CDT 12/14/2024 2:51 PM CDT Anupam Lopez MD EKG ORD Fin al Result * COLONOSCOPY SCREENING (03/06/2024 12:00 AM CDT) Ruby YEE GI PROCEDURE ORD Final Re sult * LIPID PANEL W REFLEX MEASURED LDL (11/26/2023 10:12 AM CDT) CHOLESTEROL,TOTAL 162 100 - 199 mg/dL 11/27/2023 2:10 AM CDT [facility] Comment: Cholesterol, Total Reference Ranges Desirable <200 mg/dL Borderline 200-239 mg/dL High >=240 mg/dL TRIGLYCERIDES 109 <150 mg/dL 11/27/2023 2:10 AM CDT [facility] HDL CHOLESTEROL 50 >40 mg/dL 2:10 AM CDT [facility] NON-HDL CHOLESTEROL 112 <145 mg/dl 11/27/2023 2:10 AM CDT [facility] CHOL/HDL RATIO 3.24 <4.50 11/27/2023 2:10 AM CDT [facility] LDL CHOLESTEROL 90 <=130 mg/dL 11/27/2023 2:10 AM CDT [facility] VLDL CHOLESTEROL 22 <=30 mg/dL 11/27/2023 2:10 AM CDT [facility] PROVIDER ORDERED STATUS RANDOM 11/27/2023 2:10 AM CDT [facility] Blood BLOOD SPECIMEN / Unknown Butterfly / Unknown 11/26/2023 10:12 AM CDT 11/26/2023 10:12 AM CDT us Ruby YEE CHEMISTRY Final Res ult [facility] [address] [place] [address], * ANTI HCV (05/01/2021 10:05 AM CDT) HEPATITIS C ANTIBODY Non-React brian Non-React brian 05/01/2021 6:57 PM CDT [facility] Comment:Antibodies to HCV no t detected; does not exclude the possibility of exposure to HCV. Blood BLOOD SPECIMEN / Unknown Venipuncture / Unknown 05/01/2021 10:05 AM CDT 05/01/2021 10:05 AM CDT us Venita Marquez MD SEND OUTS Final Result Performing Organization Address City/[facility]/ZIP Co de Phone Number [facility] [address] [place] [address], from Last 3 Months or Most Recently Relevant to Health Maintenance Insurance MEDICARE PART A HB ONLY [facility] Advance Directives * Full Code (Latest Code [...] Code Status Discussion: Not Discussed Care Teams Clinical Research Director Relationship Specialty Start Date End Date Ruby Boston PA [address] [place] [address] PCP - General Physician Operations/Dispatch 11/26/23 Brunilda Elias MD Rheumatology Rheumatology 10/11/15
[2025-02-23 13:08] VITALS: BP 120/82; PULSE 88; RESP 18; TEMP 36.9; O2SAT 94; BMI 49.4
--- NOTE | 2025-02-23 14:22 | ED.GENADULT ---
HPI - General Adult General Chief complaint: Shoulder Injury/Pain Stated complaint: upper collar bone pain Time Seen by Provider: 02/23/25 14:22 History of Present Illness HPI narrative: Pt presents with 6/10 pain in upper L shoulder and some numbness in L fingers. Pt denies any injury. Pt states pain worsens with movement. Denies SOB, nausea, vomiting, and diarrhea. Pain has been going on for past 10 days. 69-year-old man presenting to the emergency department with concern of left collarbone area pain as initially indicated. It has been going on for about a week at least. He does not recall specific injury. He does appear to be worse with movement when inquired or manipulated during exam. No pleuritic pain. He is not short of breath. No fever. No rashes. No new neck pain. Sometimes he feels some numbness or tingling into his fingers but not currently. Not associated with neck movement. Related Data Home Medications ?Medication ?Instructions ?Recorded ?Confirmed allopurinol 300 mg tablet 300 mg PO DAILY 04/12/23 02/23/25 apixaban 5 mg tablet (Eliquis) 5 mg PO BID 04/12/23 02/23/25 furosemide 20 mg tablet 20 mg PO QAM 04/12/23 02/23/25 lisinopril 40 mg tablet 40 mg PO DAILY 04/12/23 02/23/25 metoprolol succinate 50 mg 50 mg PO BID 04/12/23 02/23/25 tablet,extended release 24 hr Previous Rx's ?Medication ?Instructions ?Recorded amiodarone 400 mg tablet 400 mg PO BID #30 tabs 04/12/23 metoprolol succinate 100 mg 100 mg PO BID #30 tabs 04/12/23 tablet,extended release 24 hr Allergies Allergy/AdvReac Type Severity Reaction Status Date / Time No Known Drug Allergies Allergy Verified 02/23/25 13:07 Review of Systems Status of ROS: Reports: 6 or more systems reviewed and unremarkable except as noted in History and below [facility] Social History Smoking Status: Never smoker Do you use any of these nicotine containing products: None Second hand tobacco smoke exposure: No How often do you have a drink containing alcohol: monthly or less How many standard drinks containing alcohol do you have on a typical day: 1 or 2 How often do you have six or more drinks on one occasion: Never AUDIT-C Alcohol total score: 1 Non-prescribed substance use: denies use service: No Exam Narrative: Exam Narrative: Very pleasant. Of good energy. Breathing easily. Neck is supple. No reproduction to pain to palpation over the back or periscapular area. Is sore to palpation generally about the shoulder. I do not appreciate any swelling or erythema. Pain is not discretely tender to palpation of the AC joint. He does have pain to palpation at the mid, slightly lateral to midline upper chest near the clavicle. Is able to abduct the left shoulder to about 90? but then has too much discomfort. I can with assistance raise it beyond this. Pain is exacerbated with internal or external rotation. Does have good strength to resisted internal external rotation. Const: Vital Signs, click to edit/add: Vital Signs - 24 hr 02/23/25 13:08 Temperature 98.5 F Pulse Rate [Right Pulse Oximeter] 88 Respiratory Rate 18 Blood Pressure [Ri ght Upper Arm] 120/82 Pulse Oximetry 94 Oxygen Delivery Me thod Room Air Documenting provider has reviewed patient's vital signs: yes Course Vital Signs Vital signs: Initial Vital Signs Temperature 98.5 F 02/23/25 13:08 Temperature Source Temporal Artery Scan 02/23/25 13:08 Pulse Rate 88 02/23/25 13:08 Respiratory Rate 18 02/23/25 13:08 Blood Pressure 120/82 02/23/25 13:08 Blood Pressure Mean 94 02/23/25 13:08 Blood Pressure Position Sitting 02/23/25 13:08 Pulse Oximetry 94 02/23/25 13:08 Oxygen Delivery Method Room Air 02/23/25 13:08 Vital Signs Temperature 98.5 F 02/23/25 13:08 Pulse Rate 88 02/23/25 13:08 Respiratory Rate 18 02/23/25 13:08 Blood Pressure 120/82 02/23/25 13:08 Pulse Oximetry 94 02/23/25 13:08 Oxygen Delivery Method Room Air 02/23/25 13:08 Temperature 98.5 F 02/23/25 13:08 Pulse Rate 88 02/23/25 13:08 Respiratory Rate 18 02/23/25 13:08 Blood Pressure 120/82 02/23/25 13:08 Pulse Oximetry 94 02/23/25 13:08 Oxygen Delivery Method Room Air 02/23/25 13:08 Medical Decision Making MDM Narrative Medical decision making narrative: Pain that is slightly reproduced in the upper left chest I wonder if is referring from a shoulder. Less likely bony lesion unrelated. Possible subacromial bursitis. Costochondritis? Does not seem to be related to neck or back. I do think this is most likely be musculoskeletal. He is left handed. I do not think this is a rotator cuff injury; has good strength though painful and there was no preceding injury. Requested shoulder x-ray Shoulder x-ray independently reviewed by me does not show any unusual lesions. There are degenerative changes. Study:?XRay-Shoulder Left SHOULDER 3 VIEWS-02/23/2025 3:15:39 PM Ordering Physician:Kate Fletcher Final Report: Indication: Left shoulder pain, chest wall pain Comparison: None available. Technique: 3 in views of the left shoulder were obtained Findings: There is no displaced fracture or dislocation. Moderate degenerative changes of the acromioclavicular and glenohumeral joint are appreciated with marginal osteophyte formation. The soft tissues are unremarkable. Impression: Moderate degenerative changes of the acromioclavicular and glenohumeral joints without acute osseous abnormality. Dictated by Esteban Nunez MD @ 02/23/2025 3:46:00 PM Later I realize that a does have some concerns as he notes that had an ablation years ago and had some related pain in the area. Palpating pulse still does feel quite regular. Did offer EKG to confirm. EKG independently reviewed by me just showed normal sinus rhythm. Lower voltage. Rate of 76. Re-examining does have more specific pain to palpation subacromial area the shoulder. Have proposed an arm sling at this point to rest. Ibuprofen for brief course should be okay. We also discussed potential Celebrex or naproxen. Is not anticoagulated as he notes. Denies problems with his stomach and ischemic cardiovascular disease. See patient discharge plan for further discussion Might consider icing your shoulder 2 - 3 times a day for the next few days. I like the ice bags with a screw top lids. Put in about a tray of ice and add water. I would make a follow-up for about a week from now with your primary care provider in case you are not improving. Would like you to wear this arm sling though in the meantime and see if we can rest this shoulder and might improve. Also giving you handout on what I think might be going on; shoulder bursitis. This will give you some exercises, treatment recommendations to begin. Take this handout with you to follow-up if you need to go. You can take your acetaminophen up to 1000 mg per dose. As discussed, I would also consider, at least for the short term, taking 400-600 mg of ibuprofen 2-3 times daily with a little food. Medical Records Medical records reviewed: Yes I reviewed the patient's medical records Discharge Plan Discharge Clinical Impression: Left shoulder pain Patient Disposition: Home, Self-Care Condition: Stable Additional Instructions: Might consider icing your shoulder 2 - 3 times a day for the next few days. I like the ice bags with a screw top lids. Put in about a tray of ice and add water. I would make a follow-up for about a week from now with your primary care provider in case you are not improving. Would like you to wear this arm sling though in the meantime and see if we can rest this shoulder and might improve. Also giving you handout on what I think might be going on; shoulder bursitis. This will give you some exercises, treatment recommendations to begin. Take this handout with you to follow-up if you need to go. You can take your acetaminophen up to 1000 mg per dose. As discussed, I would also consider, at least for the short term, taking 400-600 mg of ibuprofen 2-3 times daily with a little food. Prescriptions: No Action metoprolol succinate 50 mg tablet extended release 24 hr 50 mg PO BID allopurinol 300 mg tablet 300 mg PO DAILY furosemide 20 mg tablet 20 mg PO QAM lisinopril 40 mg tablet 40 mg PO DAILY Eliquis 5 mg tablet 5 mg PO BID amiodarone 400 mg tablet 400 mg PO BID Qty: 30 0RF metoprolol succinate 100 mg tablet extended release 24 hr 100 mg PO BID Qty: 30 0RF Follow Up/Referrals: Ruby Boston PA-C [Primary Care Provider, Family Practice] Stand Alone Forms: [facility] Info Instructions
--- NOTE | 2025-02-23 14:30 | CRLHL7_ITS ---
For Patients: As a result of the Century Cures Act, medical imaging exams and procedure reports are released immediately into your electronic medical record. You may view this report before your referring provider. If you have questions, please contact your health care provider. Indication: Left shoulder pain, chest wall pain Comparison: None available. Technique: 3 in views of the left shoulder were obtained Findings: There is no displaced fracture or dislocation. Moderate degenerative changes of the acromioclavicular and glenohumeral joint are appreciated with marginal osteophyte formation. The soft tissues are unremarkable. Impression: Moderate degenerative changes of the acromioclavicular and glenohumeral joints without acute osseous abnormality. Dictated by Esteban Nunez MD @ 02/23/2025 3:46:00 PM (Electronically Signed)
== END 2025-02-23 17:16 | disposition home or self-care (01) ==
PROVIDERS: Emergency Provider Family Medicine; PCP Student in an Organized Health Care Education/Training Program
DX: M25.512 Pain in left shoulder (principal)
CPT/HCPCS: 73030; 99283; 99284